=== PATIENT | female | born 1955 | race Caucasian/White ===

== ENCOUNTER → 2016-12-08 | Outpatient (CLI) | payer OTHER, MEDICARE | END | disposition home or self-care (01) | LOC: C.RDSM 15:15 | PROVIDERS: ATTEND Physical Medicine & Rehabilitation Sports Medicine | DX: M25.561 Pain in right knee (principal); M25.562 Pain in left knee ==

== ENCOUNTER 2017-07-15 08:12 | Inpatient (IN) | payer OTHER, MEDICARE ==
[2017-06-26 10:38] VITALS: BMI 40.0
--- NOTE | 2017-06-26 11:30 | PAT Medication Instructions ---
Service Date Jun 26, 2017. 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 Instructions For Your Scheduled Surgery - Check with surgeon for instructions: Ibuprofen (Motrin), 800 MG PO Q8H PRN for PRN - Hold the following medications 24 hours prior to surgery: Ropinirole (Requip), 0.25 MG PO HS PRN for RN Fenofibrate (Tricor), 48 MG PO for AM - Hold the following medications the morning of surgery: Furosemide (Lasix), 20-40 MG PO PRN Multivitamin (Multivitamin), 1 TAB PO QAM Potassium Chloride Pwd (Klor-Con Pwd), 20-40 MEQ PO PRN - Take the following medications the morning of surgery with a sip of water: Omeprazole (Prilosec), 40 MG PO QAM PRN for AM Hydrocodone/Acetaminophen 7.5MG/325MG (Crestwood 7.5MG/325MG), 1 TAB PO TID PRN for N (okay to take up to 4 hours prior to surgery if needed) Aspirin (Aspir-81), 1 TAB PO QAM (okay to continue per surgeon) - Take the following medications as scheduled the night before surgery: Potassium Chloride Pwd (Klor-Con Pwd), 20-40 MEQ PO PRN (if needed) Hydrocodone/Acetaminophen 7.5MG/325MG (Crestwood 7.5MG/325MG), 1 TAB PO TID PRN for N (if needed) Furosemide (Lasix), 20-40 MG PO PRN (if needed) If you have any questions please call us at [phone] or [phone] or [phone]
[2017-06-26 12:13] LABS: BASO % 0.2 %; BASO ABS # 0.01 K/uL (0-0.2); COMPLETE YES; EOS % 1.8 %; IG% 0.2 %; LYMPH % 34.9 %; LYMPH ABS # 1.89 K/uL (1.2-3.4); MEAN CORPUSCULAR HEMOGLOBIN 31.7 pg (25-34); MEAN CORPUSCULAR HGB CONC 33.3 g/dl (32-36); MEAN PLATELET VOLUME 11.3 fL (7.4-10.4); NEUT % 57.9 %; PLATELET COUNT 215 K/uL (130-400); RED BLOOD COUNT 4.42 M/uL (4.2-5.4); WHITE BLOOD COUNT 5.42 K/uL (4.8-10.8)
[2017-06-26 12:13] LABS: URINE APPEARANCE CLEAR (CLEAR); URINE BILIRUBIN NEG (NEG); URINE COLOR YELLOW; URINE NITRITE NEG (NEG); URINE PH 6.5 (4.5-7.5); UROBILINOGEN NEG (NEG)
--- NOTE | 2017-06-26 12:13 | DIAGNOSTIC IMAGING REPORT ---
CHEST PREADMISSION(PA/LAT) CLINICAL HISTORY: Preoperative evaluation. COMPARISON STUDY: No previous studies for comparison. FINDINGS: Incidental note is made of upper abdominal surgical clips and an anterior cervical spine fusion. Lung volumes are normal. No pneumothorax or pleural effusion is present. There is no evidence of pulmonary edema. Linear left lower lung opacity suggests atelectasis. Cardiomediastinal silhouette is normal. IMPRESSION: No acute cardiopulmonary findings. Electronically signed by: Simon Yancey M.D. 06/26/2017 12:11 PM Dictated Date/Time: 06/26/2017 12:10 PM
[2017-06-26 12:23] LABS: MANUAL MICROSCOPIC REQUIRED? NO; REVIEW REQ? NO
[2017-06-26 12:23] LABS: PARTIAL THROMBOPLASTIN RATIO 1.1; PROTHROMBIN TIME (PATIENT) 10.4 SECONDS (9.0-12.0)
[2017-06-26 12:35] LABS: BUN/CREATININE RATIO 15.3 (10-20); CALCIUM 9.3 mg/dl (8.5-10.1); CREATININE 0.99 mg/dl (0.60-1.20); POTASSIUM 4.6 mmol/L (3.5-5.1)
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
[2017-07-15] VITALS (7 sets, daily range): BP systolic 127–173; BP diastolic 77–92; PULSE 73–96; TEMP 36.5–36.9; O2SAT 96–100; Ht 170.2 cm; Wt 115.7 kg
[~2017-07-15] VITALS: Ht 170.2 cm; Wt 115.7 kg
[~2017-07-15 08:12] MED LIST: ANCEF - ALLERGY NOTED TO ORDERED MEDICATION SCH; ASPI-232 PO; BUPIVACAINE 0.25% 30 ML VIAL ONE; BUPIVACAINE 0.5 % 5 MG/1 ML PF 10ML VIAL ONE; CEFAZOLIN 2000MG IV PUSH 10 ML IV SCH; FENO48TA9 PO; FURO-85 PO; HYDR-3983 PO; IBUP-1428 PO; LACTATED RINGER'S 1000ML 1,000 ML IV SCH; LACTATED RINGER'S 1000ML 500 ML IV ONE; LACTATED RINGER'S 1000ML IV SCH; MULT-506 PO; POTA1POW PO; PRLSR20 PO; ROPI0.25 PO; ROPIVACAINE 5MG/ML 30 ML 150 MG, BUPIVACAINE/EPINEPHR 0.5% MPF 30 ML, KETOROLAC TROMETH... INFIL SCH; TRANEXAMIC ACID INJ 1,000 MG in SYRINGE 0 ML IV SCH
--- NOTE | 2017-07-15 08:15 | History & Physical Bridge Note ---
H&P Re-Evaluation Bridge Note: I have examined the patient, reviewed the History & Physical and in the interval since the performance of the History & Physical I have noted the following changes of clinical significance:consent reviewed. No changes noted
[2017-07-15] MEDS ORDERED: FENTANYL CITRATE INJ 50 MCG/1 ML 2 ML VIAL ONE (09:00)
[2017-07-15] MEDS ORDERED: MIDAZOLAM HCL 1 MG/ML 2ML VIAL ONE (09:00)
[2017-07-15] MEDS ORDERED: LIDOCAINE HCL 2% 2 ML VIAL (20MG/ML) ONE (09:05)
[2017-07-15] MEDS ORDERED: PHENYLEPHRINE 100MCG/ML 5ML SYR ONE (09:05)
[2017-07-15] MEDS ORDERED: PROPOFOL IV EMULSION 10 MG/ML 20 ML VIAL IV ONE ×2 (09:05→11:14)
[2017-07-15] MEDS ORDERED: EpHEDrine SULFATE 50MG/5ML SYR ONE (09:05)
[2017-07-15] MEDS ORDERED: EpHEDrine SULFATE INJ 50 MG/ML AMP IV PRN (10:00)
[2017-07-15] MEDS ORDERED: ATROPINE SULFATE 0.1 MG/ML 5ML SYR IV PRN (10:00)
[2017-07-15] MEDS ORDERED: ONDANSETRON INJ 2 MG/ML 2 ML VIAL IV PRN ×2 (10:00→12:15)
[2017-07-15] MEDS ORDERED: POVIDONE-IODINE OP SOLN 30 ML BTL ONE (10:16)
[2017-07-15] MEDS ORDERED: ORTHO JOINT ANESTHETIC ONE (10:16)
--- NOTE | 2017-07-15 12:14 | [facility] Post Operative Brief Note ---
Immediate Operative Summary Operative Date Jul 15, 2017. Pre-Operative Diagnosis Right Knee Degenerative Joint Disease Post-Operative Diagnosis Same as preop Procedure(s) Performed Right Total Knee Arthroplasty Surgeon Dr. Boateng Clutch Mechanic Surgeon(s) Samuel Danielson PA-C Estimated Blood Loss 25 ml Findings severe djd Fluids (cc crystalloids) 1300cc Specimens A. Right Knee Bone and Tissue Drains none Anesthesia spinal Complication(s) None Disposition Recovery Room / PACU
[2017-07-15] MEDS ORDERED: METOCLOPRAMIDE HCL INJ 5 MG/ML 2 ML VIAL IV PRN (12:15)
[2017-07-15] MEDS ORDERED: DiphenhydrAMINE HCL 50 MG/ML VIAL IV PRN (12:15)
[2017-07-15] MEDS ORDERED: OXYCODONE HCL IR 5 MG TAB (IMMEDIATE RELEASE) PO PRN (12:15)
[2017-07-15] MEDS ORDERED: ACETAMINOPHEN 325 MG TAB PO PRN (12:15)
[2017-07-15] MEDS ORDERED: BISACODYL 10 MG SUPP PR PRN (12:15)
[2017-07-15] MEDS ORDERED: ROPINIROLE HCL 0.25 MG TAB PO PRN (12:15)
[2017-07-15] MEDS ORDERED: ALUMINUM/MAGNESIUM/SIMETH (MAALOX MAX) 30 ML UDC PO PRN (12:15)
[2017-07-15] MEDS ORDERED: MAGNESIUM HYDROXIDE SUSP 30 ML UDC PO PRN (12:15)
--- NOTE | 2017-07-15 12:30 | [facility] Operative Report ---
Operative Report Operative Date Jul 15, 2017. Pre-Operative Diagnosis Right Knee Degenerative Joint Disease Post-Operative Diagnosis Same as preop Procedure(s) Performed Right Total Knee Arthroplasty Surgeon Dr. Boateng Front Man Surgeon(s) Samuel Danielson PA-C Estimated Blood Loss 25 ml Findings Right knee end-stage DJD Fluids 1300cc Specimens A. Right Knee Bone and Tissue Drains none Anesthesia spinal Complication(s) None Disposition Recovery Room / PACU Indications This 61-year-old white female presented to the office with complaints of intractable right knee pain. Pain was worse with weight-bearing. She had tried conservative care measures including activity modification, steroid injections, and oral pain medication without lasting relief. She elected to proceed with surgical intervention after being educated about potential risks and outcomes. Preoperative imaging was obtained. Description of Procedure Patient was administered a spinal anesthetic and then taken to the operating room where she was given sedation. She was prepped and draped in usual sterile fashion. Please see Dr. Boateng's operative report for specifics of the procedure. I was present for the entire case from initial patient positioning through final wound closure. Assistance was provided in tissue traction, hemostasis, trial implant placement, final implant placement, and final wound closure. Patient was taken to the recovery room in satisfactory condition. I attest to the content of the Intraoperative Record and any orders documented therein. Any exceptions are noted below.
--- NOTE | 2017-07-15 12:34 | OPERATIVE REPORT ---
DATE OF OPERATION: 07/15/2017 PREOPERATIVE DIAGNOSIS: Osteoarthritis, right knee. POSTOPERATIVE DIAGNOSIS: Same. OPERATION PERFORMED: Right cemented total knee replacement. SURGEON: Dr. Boateng. MANAGER PAID: Samuel Danielson PA-C. PERIOPERATIVE SITUATION: Medically cleared female with intractable knee pain has physical exam, x-ray is consistent with severe disease, has marked medial joint space narrowing and patellofemoral disease. SUMMARY OF IMPLANTS: Size 3 rotating platform tibia, oval domed 3 pegged patella size 38, tibial insert size 4/12.5, size 4 femur, posterior cruciate substituting size 4 narrow. ESTIMATED BLOOD LOSS: 25 mL. CRYSTALLOID: 1300 mL. DVT prophylaxis with Coumadin. PERIOPERATIVE SITUATION: Medically cleared female with intractable knee pain. Physical exam and x-rays have severe disease. Wants to proceed with surgical treatment. Had the other side done years ago. OPERATION AND FINDINGS: OPERATION: The patient appropriately identified, site verified, consent verified, 2 grams of Ancef and a gram of TXA confirmed as being given. The right lower extremity was prepped and draped in usual routine fashion. Tourniquet inflated to 300 mmHg after exsanguination of limb with a rubber Esmarch bandage for a total of 44 minutes. Midline exposure was utilized. Parapatellar arthrotomy performed. Synovectomy completed. Distal femur then resected 12 mm. Proximal tibia resected 4 mm. The extension gap was excellent. The femur was sized between a 5 and 4, it was measured 5 cut 4. The flexion gap was good. Four narrow implant was then applied. Box cut made. The 4 narrow fit well. There was no overhang. The tibia was sized to a 3, appropriate placed, broaching and reaming carried out. The size 3 trial fit well with 12.5 mm posterior cruciate stabilized spacer. The knee was stable in full extension and full flexion and mid range flexion. Patella was sized to a 38. Resection made leaving 15 mm. Seating hole was made and the trial tracked well and fit well. The wound was then irrigated with Betadine, Pulsavac, injected with Orthomix and then the permanent implants cemented into position. After 12 minutes the tourniquet deflated. After additional 2 minutes the knee flexed. Minor cement removal occurred and the wound irrigated with Pulsavac and Betadine. Permanent liner was then seated. The knee was reduced and closed using #1 Ethibond, #1 Vicryl, 2-0 Vicryl and stainless steel clips. The patient then had a Abdullahi Fierro cotton dressing with Sander bandages applied. She will have a Prevena placed tomorrow based on her size. She is at high risk relatively speaking with respect to her BMI and potential wound complications. She understood this going into the procedure. She was appropriately managed during the procedure. We will keep her knee relatively stiff for next 2 weeks to let the wound heal, use the Prevena, follow up in a week for dressing change. Keep INR in the 2 range. SUMMARY OF IMPLANTS: Again, size 4 narrow femur, posterior cruciate substituting size 3 rotating tibial platform tray, oval domed 3 peg patella size 38, tibial insert rotating platform, posterior cruciate stabilized size 4, 12.5 mm thick, 2 bags of Palacos G cement. I attest to the content of the Intraoperative Record and any orders documented therein. Any exception s are noted below.
--- NOTE | 2017-07-15 12:59 | DIAGNOSTIC IMAGING REPORT ---
TWO VIEWS RIGHT KNEE CLINICAL HISTORY: Postoperative examination. FINDINGS: AP and crosstable lateral portable views of the right knee are obtained. A right knee arthroplasty is in near anatomic alignment. There has been undersurface remodeling of the patella. No acute fracture is seen. There are expected postoperative changes around the knee including skin clips, soft tissue edema, and subcutaneous gas. IMPRESSION: Expected postoperative changes status post right knee arthroplasty. No acute fracture is seen. Electronically signed by: Thom Mo M.D. 07/15/2017 12:58 PM Dictated Date/Time: 07/15/2017 12:57 PM
--- NOTE | 2017-07-15 13:03 | PROGRESS NOTE ---
DATE: 07/15/2017 SUBJECTIVE: Postop check seen in recovery room. The patient is doing well. Denies chest pain, shortness of breath, fever, chills, nausea, vomiting, or headache. Vital signs are stable. She is afebrile. Still has effects of spinal; CMS is limited by that. Wound dressing clean, dry and intact. X-rays post op look good. ASSESSMENT: Doing well. Continue with care pathway. Mobilize to tolerance if x-rays look good. FELIZ
--- NOTE | 2017-07-15 14:02 | Anesthesiology Progress Note ---
Anesthesia Post Op Note Date & Time Jul 15, 2017 at 14:01 Vital Signs Pain Intensity: 0 Vital Signs Past 12 Hours Date Time Temp Pulse Resp B/P (MAP) Pulse Ox O2 Delivery O2 Flow Rate FiO2 07/15/17 13:56 36.2 80 18 122/80 98 Nasal Cannula 2 07/15/17 12:13 36 89 16 125/79 98 Nasal Cannula 2 07/15/17 08:45 36.6 96 18 173/92 96 Room Air Notes Mental Status: alert / awake / arousable, participated in evaluation Pt Amnestic to Procedure: Yes Nausea / Vomiting: adequately controlled Pain: adequately controlled Airway Patency, RR, SpO2: stable & adequate BP & HR: stable & adequate Hydration State: stable & adequate Neuraxial Anesthesia: was administered, sensory block is resolving Anesthetic Complications: no major complications apparent
[2017-07-15] MEDS ORDERED: HYDR-3983 PO (14:13)
[2017-07-15] MEDS ORDERED: WARF2TAB PO (14:13)
[2017-07-15] MEDS ORDERED: MoRPHine SULFATE 4 MG/ML 1 ML CARP\\VIAL IV PRN (14:15)
[2017-07-15] MEDS ORDERED: D5W AND 1/2NSS + 20MEQ KCL 1,000 ML IV SCH (15:15)
[2017-07-15] MEDS ORDERED: WARFARIN SOD 5 MG TAB PO SCH (16:00)
[2017-07-15] MEDS ORDERED: TRANEXAMIC ACID INJ 1,000 MG in SODIUM CHLORIDE 0.9% 100ML 100 ML IV SCH (18:00)
[2017-07-15] MEDS: CEFAZOLIN IV 2,000 MG in SYRINGE 0 ML IV SCH (18:38)
[2017-07-15] MEDS ORDERED: NURSING VERBAL MED ORDER ONE (19:45)
[2017-07-15] MEDS ORDERED: HYDROCODONE/ACETAMOPHEN 5/325MG TAB PO PRN (20:00)
[2017-07-15] MEDS: DOCUSATE SODIUM 100 MG CAP PO SCH (20:35)
[2017-07-15] MEDS: MoRPHine SULFATE 2 MG/ML CARP IV PRN (23:15)
[2017-07-16] MEDS: ACETAMINOPHEN IV 100 ML IV PRN ×2 (00:05→13:20)
[2017-07-16] MEDS: CEFAZOLIN IV 2,000 MG in SYRINGE 0 ML IV SCH (02:25)
[2017-07-16] MEDS: MoRPHine SULFATE 2 MG/ML CARP IV PRN ×2 (03:12→05:46)
[2017-07-16 03:21] VITALS: BP 121/76; PULSE 85; TEMP 36.8; O2SAT 96
[2017-07-16] MEDS ORDERED: HYDROmorphone HCL 2 MG TAB PO STA (06:09)
[2017-07-16 06:30] LABS: MEAN CELL VOLUME 96.8 fL (80-100); MEAN CORPUSCULAR HEMOGLOBIN 32.3 pg (25-34); MEAN CORPUSCULAR HGB CONC 33.3 g/dl (32-36); MEAN PLATELET VOLUME 10.7 fL (7.4-10.4); PLATELET COUNT 170 K/uL (130-400); RED BLOOD COUNT 3.41 M/uL (4.2-5.4); WHITE BLOOD COUNT 6.93 K/uL (4.8-10.8)
--- NOTE | 2017-07-16 06:32 | PROGRESS NOTE ---
DATE: 07/16/2017 SUBJECTIVE: Postop day #1. She is on chronic pain meds at home and feels like the pain medications are not really helping. Otherwise, she is doing fine. She is up ambulatory. She denies chest pain, shortness of breath, fever, chills, nausea, vomiting or headache. OBJECTIVE: Vital signs are stable. She is afebrile. Abdomen soft, nontender. Calf soft, nontender. Wound dressing clean, dry and intact. Neurovascular check femoral sciatic nerve is good. ASSESSMENT: Overall, doing reasonable, but needs better pain management. We will switch to oral Dilaudid 2 mg p.o. q. 3 hours p.r.n. Coumadin per nomogram. Laboratory work pending. PT, OT, social service consult. Discharge pending her pain management. Hopefully this will get under control today. Later today potential discharge versus tomorrow. Discharge on Coumadin usual dose, 4 mg if INR is less than 1.5, 2 mg if greater than 1.5.
[2017-07-16 06:43] LABS: INR 1.1 (0.9-1.1)
[2017-07-16 07:08] LABS: BUN/CREATININE RATIO 12.3 (10-20); CALCIUM 8.6 mg/dl (8.5-10.1); CREATININE 1.01 mg/dl (0.60-1.20); POTASSIUM 4.2 mmol/L (3.5-5.1)
--- NOTE | 2017-07-16 07:20 | Clinical Documentation Query ---
CLINICAL DOCUMENTATION QUERY A 61 yo female admitted with s/p right total knee arthroplasty. In your clinical opinion is this patient being managed for: ( x ) Renal agenesis, congenital ( ) Acquired kidney loss, surgical removal ( ) Not Agree ( ) Other explanation of clinical findings (Please Explain) ( ) Unable to determine (Please Define) ( ) Need to Discuss The medical record reflects the following clinical findings, treatment, and risk factors. Clinical Indicators: Documented "solitary kidney" in H&P Treatment: Prescription management, PRP Risk Factors: S/p surgical intervention, HTN, renal cancer Please clarify and document your clinical opinion in the progress notes and discharge summary. Terms such as "probable", "suspected", "likely", "questionable", "possible", or "still to be ruled out" are acceptable. IF IN AGREEMENT, YOU MUST DOCUMENT ABOVE DIAGNOSTIC STATEMENT IN DAILY PROGRESS NOTES AND DISCHARGE SUMMARY. This document is not part of the patient's record. Thank You, Ericka Hammond RN [phone]
[2017-07-16] MEDS ORDERED: DEXAMETHASONE INJ 10 MG in SYRINGE 0 ML IV ONE (07:30)
[2017-07-16 07:41] VITALS: BP 100/56; PULSE 83; TEMP 37.1; O2SAT 94
--- NOTE | 2017-07-16 07:52 | PROGRESS NOTE ---
DATE: 07/16/2017 DATE: 07/16/2017 At this point in time the patient cannot use Toradol based on renal risk from congenital kidney absence. I switched her to Thai to help with that. She notes that adjustment in medication has worked well.
--- NOTE | 2017-07-16 08:26 | Orthopedic Progress Note ---
Orthopedic Progress Note Date of Service Jul 16, 2017. Subjective Post OP Day: 1 Reports: complaints, Denies: chest pain, SOB, nausea / vomiting, light headedness, calf pain Additional Notes: Patient states she had significant pain last night and required morphine. Pain is better now. Objective calves soft nontender, N/V intact, capillary refill less than 2 sec., dressing C /D/I, incision C/D/I, A&O x3, toes mobile, CMS intact minor bleeding on dressings, no active bleeding now Date Time Temp Pulse Resp B/P (MAP) Pulse Ox O2 Delivery O2 Flow Rate FiO2 07/16/17 07:41 37.1 83 16 100/56 (71) 94 Room Air 07/16/17 03:21 36.8 85 18 121/76 (91) 96 Room Air 07/15/17 23:55 Room Air 07/15/17 23:25 36.9 91 20 127/86 (100) 97 Room Air 07/15/17 17:20 36.5 82 18 137/87 (104) 100 Nasal Cannula 2.0 07/15/17 16:20 36.6 80 18 143/92 (109) 98 Nasal Cannula 2.0 07/15/17 15:40 Nasal Cannula 2.0 07/15/17 15:20 36.6 73 16 138/81 (100) 99 Nasal Cannula 2.0 07/15/17 14:51 Nasal Cannula 2.0 07/15/17 14:46 100 Nasal Cannula 2.0 07/15/17 14:25 36.9 82 18 133/77 (95) 100 Nasal Cannula 2.0 07/15/17 14:03 79 14 96 07/15/17 14:03 79 14 07/15/17 14:02 127/85 07/15/17 13:58 80 14 97 07/15/17 13:58 78 14 07/15/17 13:57 122/80 07/15/17 13:56 36.2 80 18 122/80 98 Nasal Cannula 2 07/15/17 13:53 74 14 07/15/17 13:53 80 14 96 07/15/17 13:52 129/98 07/15/17 13:48 83 16 98 07/15/17 13:48 83 16 07/15/17 13:47 127/98 07/15/17 13:43 82 22 07/15/17 13:43 84 22 98 07/15/17 13:42 146/84 07/15/17 13:38 71 13 07/15/17 13:38 72 13 98 07/15/17 13:37 136/81 07/15/17 13:33 72 17 07/15/17 13:33 71 17 98 07/15/17 13:32 139/82 07/15/17 13:28 77 13 99 07/15/17 13:28 70 13 07/15/17 13:27 129/65 07/15/17 13:23 75 12 97 07/15/17 13:23 74 12 07/15/17 13:22 145/82 07/15/17 13:18 75 15 100 07/15/17 13:18 73 15 07/15/17 13:17 135/75 07/15/17 13:13 80 14 98 07/15/17 13:13 80 14 07/15/17 13:12 132/75 07/15/17 13:08 77 14 100 07/15/17 13:08 77 14 07/15/17 13:07 132/84 07/15/17 13:03 78 13 98 07/15/17 13:03 77 13 07/15/17 13:02 140/81 07/15/17 12:58 82 14 07/15/17 12:58 83 14 100 07/15/17 12:57 128/72 07/15/17 12:53 86 25 07/15/17 12:53 85 25 138/73 100 07/15/17 12:48 81 16 100 07/15/17 12:48 82 16 07/15/17 12:47 133/84 07/15/17 12:43 88 16 99 07/15/17 12:43 86 16 07/15/17 12:42 141/75 07/15/17 12:38 82 12 07/15/17 12:38 79 12 98 07/15/17 12:37 125/83 07/15/17 12:33 93 13 98 07/15/17 12:33 86 13 07/15/17 12:32 125/78 07/15/17 12:28 90 14 131/80 97 07/15/17 12:28 87 14 11/1/17 12:23 90 15 97 07/15/17 12:23 87 15 07/15/17 12:22 111/79 07/15/17 12:18 89 16 07/15/17 12:18 90 16 100 07/15/17 12:17 120/65 07/15/17 12:14 125/79 07/15/17 12:13 95 16 97 07/15/17 12:13 82 16 07/15/17 12:13 36 89 16 125/79 98 Nasal Cannula 2 07/15/17 08:45 36.6 96 18 173/92 96 Room Air Laboratory Results 24 Hours: Test 07/16/17 06:16 Hematocrit 33.0 % Hemoglobin 11.0 g/dL Prothromb Time International Ratio 1.1 Prothrombin Time 12.0 SECONDS Assessment & Plan Assessment: post op day 1 Right total knee arthroplasty Plan: PT/OT today coumadin per nomogram dressing changed to Prevena wound vac this morning will re-assess this afternoon -patient will let us know about D/C today vs tomorrow continue TEDS/SCDs Discharge Planning Discharge Planning: home with home health Pain Management: Percocet, Dilaudid DVT Prophylaxis: TEDs, SCDs, Coumadin Therapy: Physical Therapy
[2017-07-16] MEDS: DOCUSATE SODIUM 100 MG CAP PO SCH (08:35)
[2017-07-16] MEDS ORDERED: FENOFIBRATE 48 MG TAB PO SCH (09:00)
[2017-07-16] MEDS ORDERED: MULTIVITAMIN TAB PO SCH (09:00)
[2017-07-16] MEDS ORDERED: ASPIRIN 81 MG ECTAB PO SCH (09:00)
[2017-07-16] MEDS: HYDROmorphone HCL 2 MG TAB PO PRN ×2 (09:22→14:00)
[2017-07-16 11:18] VITALS: BP 146/88; PULSE 91; TEMP 37.1; O2SAT 95
[2017-07-16] MEDS ORDERED: HYDR2TAB48 PO (12:01)
--- NOTE | 2017-07-16 12:01 | Discharge Instructions ---
Discharge Instructions Date of Service Jul 15, 2017. Admission Reason for Admission: Right Knee Degenerative Joint Disease Discharge Discharge Diagnosis / Problem: Right knee s/p total knee replacement Discharge Goals Goal(s): Decrease discomfort, Improve function, Increase independence Activity Recommendations Activity Limitations: as noted below Lifting Limitations: gradually increase as tolerated Exercise/Sports Limitations: until after follow-up appointment Shower/Bathe: keep incision dry Driving or Machine Use: No driving until cleared by Dr. Boateng Weightbearing Status: Right weightbearing (as tolerated) . Instructions / Follow-Up Instructions / Follow-Up New Medicine: * You will likely be taking one or more of these medications: 1. [place] - Take, as directed, when you need it, every four to six hours to control your pain. 2. Coumadin - Thins your blood to lessen the chance of forming a blood clot. The dose of this is different for each person and is based on your blood tests that are done twice a week. * The most common side effects of pain medicine and iron are nausea and constipation. If nausea or constipation is too much of a problem or if you have any questions about your new medicines or doses, call [facility] at . We will try to help you manage these issues. VERY IMPORTANT TO READ AND REVIEW" Blood Clots and Blood Thinning Medicine: * You are given Coumadin during the immediate post-operative period to lessen the risk of blood clots forming in your legs and/or lungs. Coumadin is usually given for six weeks after surgery. * The prescription is for 2 mg tablets. At discharge, you should understand your dose and take it all at the same time every day, preferably after dinner. * You need to get your blood checked 1 - 2 times per week for six weeks or as directed. * If your dose needs to change, we will call you. Do not take your medication on the day of the blood test until we call you. Pain: * The immediate post-operative period after knee replacement surgery is often quite painful. * You are given a prescription for pain medicine. You should take it, as directed, when you need it, especially before physical therapy and before going to bed. Pain that interferes with sleep is very common and can last several months. * You will likely need pain medicine for the first four to six weeks. It will not stop all of the pain. The pain will lessen and as you feel better, you may change to milder pain medicine such as Tylenol. * The most common side effects of pain medicine are nausea and constipation, so don't take more than you need. Physical Therapy: * You will have physical therapy two or three times each week for four to six weeks after your surgery in order to regain your knee range of motion and to retrain your knee to work properly. * It is just as important to make sure you are getting your knee perfectly straight as it is to regain your knee bend. * Taking a pain pill an hour before therapy can help you have a more productive and comfortable therapy session if needed. Home Exercise: * You were shown a series of exercises (heel props, heel slides, etc.) in the hospital. Do these exercises three to four times each day including the exercises you were shown in physical therapy. Walking: * Get up and walk several times each day. For the first four weeks, try not to stand or walk for more than one hour at a time. If you do stand or walk for more than one hour, you will not hurt anything, but your knee and leg will likely swell. * As you feel comfortable, you may change from the walker or crutches to a cane and then to independent walking. SELF CARE INSTRUCTIONS AFTER TOTAL KNEE REPLACEMENT A. You may need to continue a physical therapy program after discharge from the hospital. There are several options available to you. Your doctor will assist you in selecting the best one for you. 1. An out-patient facility 2 to 3 times a week for therapy or home therapy. 2. Continue working on all exercises taught to you in the hospital. Your goals should be to increase bending of your knee to 90 degrees and beyond and to fully straighten your knee. B. You may progress at your own pace from walking with a walker or crutches to a cane; then to no assistive devices. C. Make walking a part of your daily routine. Be up as much as comfortable with rest periods throughout the day. Rest with leg elevation is very important. Use the ice wrap frequently for the first 3-4 weeks. D. There are no restrictions on activities. You may ride in a car, shop, participate in registered nurse ambulatory and all social activities. E. Wear the long elastic stockings (JIMI hose) 20 hours a day for six weeks after surgery. They can be removed several times a day for laundering and for a shower. F. Do not place a pillow behind your knee when resting. A pillow at your ankle is okay. VERY IMPORTANT TO READ AND REVIEW A. Take Coumadin, Aspirin or Lovenox (blood thinning medications) as directed by your doctor. If on Coumadin, have a pro-time (blood test) drawn according to your doctor's instructions. This will tell the doctor how well the Coumadin is thinning your blood. 1. YOU WILL BE GIVEN AN ORDER AT DISCHARGE FOR PT/INR (BLOOD WORK). PLEASE HAVE THIS DONE INSTRUCTED. PLEASE CALL OUR OFFICE AFTER YOUR BLOODWORK IS COMPLETE SO WE CAN TRACK YOUR RESULTS. IF YOU ARE GOING TO OUTPATIENT PHYSICAL THERAPY, YOU WILL NEED TO GO TO OUTPATIENT TESTING TO HAVE IT DRAWN. B. There are a few signs you need to watch for after you are home. Call [facility] if you notice any of the followin. Increased severe knee pain. Some pain is expected especially when you exercise. 2. Increased swelling in your leg or knee; pain or swelling of the calf muscle in either lower leg. 3. Any fluid drainage from the incision. 4. Shortness of breath or chest pain. C. Please call [facility] at if you have any concerns or questions about your operation or recovery. The doctor or his nurse will return your call promptly. D. You must take antibiotics before dental work, bladder, bowel or other surgery. Call the office to obtain a prescription at least 2 days prior to your appointment. * CALL IF INCREASED PAIN, REDNESS, DRAINAGE OR FEVER GREATER THAT 101. * Sutures should be removed 12-14 days after surgery unless you are on chronic steriods, then it will be 14-18 days after surgery. Call your doctor if: * Temperature above 101 degrees F. * Pain not relieved by pain medicine ordered. * Increased drainage or redness from incision. * Notify your doctor with any questions or concerns. Current Hospital Diet Patient's current hospital diet: AHA Diet (Heart Healthy) Discharge Diet Recommended Diet: AHA Diet (Heart Healthy) Procedures Procedures Performed: Right Total Knee Arthroplasty Pending Studies Studies pending at discharge: no Medical Emergencies . Who to Call and When: Medical Emergencies: If at any time you feel your situation is an emergency, please call 911 immediately. . Non-Emergent Contact Non-Emergency issues call your: Primary Care Provider, Surgeon Call Non-Emergent contact if: temperature is above 101, wound has increased drainage, wound has increased redness, wound has increased pain, you have any medication questions . "Provider Documentation" section prepared by Samuel Danielson PA-C. . VTE Core Measure Inpt VTE Proph given/why not?: Warfarin (Coumadin), TAshly Stockings, SCD's [place] Drug Monitoring Program Search Results: no issues identified
--- NOTE | 2017-07-16 12:17 | DISCHARGE SUMMARY ---
DATE OF ADMISSION: 07/15/2017 DATE OF DISCHARGE: 07/16/2017 CHIEF COMPLAINT: Right knee pain. HISTORY OF PRESENT ILLNESS: The patient underwent elective right total knee replacement. Hospital course has been uneventful. Her pain was a little bit of an issue but now tolerates well with oral Dilaudid 2 mg every 4 hours. PAST MEDICAL HISTORY: Remarkable for hypertension, elevated cholesterol, heart palpitations, snoring, peripheral neuropathy, osteoarthritis, TMJ, cervical spine, chronic low back pain, history of left renal cancer, GERD, obesity, and poor dentition. PAST SURGICAL HISTORY: Includes left total knee replacement, left nephrectomy, mandibular implant, cholecystectomy, appendectomy, hysterectomy, tonsillectomy, adenoidectomy, history of lumbar fusion, and history of cervical spine fusion. ALLERGIES: MULTIPLE INCLUDING BIAXIN, KENALOG, CORTICOSTEROID, NEXIUM, PROTONIX, SULFA, PENICILLIN. She takes Keflex without issues, but PENICILLIN CAUSES HIVES. THE REST CAUSE HIVES OR HYPERTENSION. PREADMISSION MEDICATIONS: [place] 7.5/325 t.i.d.; aspirin 81 mg daily; fenofibrate 48 mg daily; Lasix 20 mg p.o. p.r.n., typically 3 times a week; ibuprofen 800 mg t.i.d.; omeprazole 40 mg daily; potassium 20 mEq p.r.n.; ropinirole 0.25 mg p.o. daily; she will discontinue the ibuprofen, she will use p.r.n. Dilaudid 2 mg q. 4 hours p.r.n. or her [place]. She will use Coumadin to keep INR 1.8 to 2.2, will be discharged on 4 mg daily. Check INR on Thursday. Of note, she has a wound VAC on. SOCIAL HISTORY: Reveals that she is on disability. Infrequent tobacco and alcohol use. She is . FAMILY HISTORY: Noncontributory. REVIEW OF SYSTEMS: Reveals no chest pain, shortness of breath, fever, chills, nausea, vomiting, or headache. ASSESSMENT: Overall doing well. Discharged today. She decided that Dilaudid controlled her pain and wants to leave, prescription for 2 mg tablets will be given for 25 pills. She can transition to her [place] as needed. She has a wound VAC in place that will be taken off early next week, Thursday or Thursday in the office. She has a followup appointment after that for roughly 2 weeks from surgery for staple removal. Discharged on 4 mg of Coumadin. Check INR on Thursday.
[2017-07-16 13:04] VITALS: BP 146/88; PULSE 91; TEMP 37.1; O2SAT 95
[2017-07-16] MEDS ORDERED: WARFARIN SOD 5 MG TAB PO ONE (16:00)
== END 2017-07-16 15:32 | disposition home health service (06) | DRG 470 ==
LOC: C.ACU 08:12 → C.MSW 08:20 → ENRESERV 13:50
PROVIDERS: ADMIT Physical Medicine & Rehabilitation Sports Medicine; ATTEND Physical Medicine & Rehabilitation Sports Medicine
PROC: 0SRC0J9 Replacement of Right Knee Joint with Synthetic Substitute, Cemented, Open Approach (ICD-10-PCS; principal; 2017-07-15 10:40)
DX: M17.11 Unilateral primary osteoarthritis, right knee (principal); Q60.0 Renal agenesis, unilateral; I10 Essential (primary) hypertension; E78.00 Pure hypercholesterolemia, unspecified; E66.9 Obesity, unspecified; Z79.899 Other long term (current) drug therapy; Z79.82 Long term (current) use of aspirin

== ENCOUNTER → 2017-08-31 | Outpatient (CLI) | payer OTHER, MEDICARE ==
[~2017-08-31] MED LIST changes: -ANCEF - ALLERGY NOTED TO ORDERED MEDICATION SCH; -BUPIVACAINE 0.25% 30 ML VIAL ONE; -BUPIVACAINE 0.5 % 5 MG/1 ML PF 10ML VIAL ONE; -CEFAZOLIN 2000MG IV PUSH 10 ML IV SCH; -IBUP-1428 PO; -LACTATED RINGER'S 1000ML 1,000 ML IV SCH; -LACTATED RINGER'S 1000ML 500 ML IV ONE; -LACTATED RINGER'S 1000ML IV SCH; -ROPIVACAINE 5MG/ML 30 ML 150 MG, BUPIVACAINE/EPINEPHR 0.5% MPF 30 ML, KETOROLAC TROMETH... INFIL SCH; -TRANEXAMIC ACID INJ 1,000 MG in SYRINGE 0 ML IV SCH; +WARF2TAB PO
== END | disposition home or self-care (01) ==
LOC: C.RDSM 11:58
PROVIDERS: ATTEND Physical Medicine & Rehabilitation Sports Medicine
DX: M17.11 Unilateral primary osteoarthritis, right knee (principal)

== ENCOUNTER 2024-04-05 07:02 | Inpatient (IN) ==
--- NOTE | 2024-03-08 10:23 | PAT Medication Instructions ---
Medication Instructions Date of Service March 08, 2024 Home Medications aspirin 81 mg capsule 81 mg PO QAM atorvastatin 20 mg tablet 20 mg PO QAM furosemide 20 mg tablet 2,040 mg PO QAM PRN swelling hydrocodone 7.5 mg-acetaminophen 325 mg tablet 1 tab PO TID PRN Pain levothyroxine 50 mcg tablet 50 mcg PO QAM losartan 100 mg tablet (Cozaar) 100 mg PO HS metaxalone 800 mg tablet 800 mg PO TID PRN muscle spasms multivitamin 1 tab PO QAM ] omeprazole 40 mg capsule,delayed release 40 mg PO QAM PRN GERD potassium chloride 20 mEq tablet,extended release 20 - 40 meq PO DAILY PRN taken when taking furosemide ropinirole 0.25 mg tablet 0.25 mg PO HS DO NOT take the morning of surgery furosemide 20 mg tablet 2,040 mg PO QAM PRN swelling multivitamin 1 tab PO QAM potassium chloride 20 mEq tablet,extended release 20 - 40 meq PO DAILY PRN taken when taking furosemide Take morning of surgery With a small sip of water, OTHERWISE NOTHING TO EAT OR DRINK AFTER MIDNIGHT: aspirin 81 mg capsule 81 mg PO QAM (unless surgeon directed otherwise) atorvastatin 20 mg tablet 20 mg PO QAM hydrocodone 7.5 mg-acetaminophen 325 mg tablet 1 tab PO TID PRN Pain (if needed) levothyroxine 50 mcg tablet 50 mcg PO QAM metaxalone 800 mg tablet 800 mg PO TID PRN muscle spasms (if needed) omeprazole 40 mg capsule,delayed release 40 mg PO QAM PRN GERD (if needed) Take evening before surgery hydrocodone 7.5 mg-acetaminophen 325 mg tablet 1 tab PO TID PRN Pain (if needed) losartan 100 mg tablet (Cozaar) 100 mg PO HS ropinirole 0.25 mg tablet 0.25 mg PO HS metaxalone 800 mg tablet 800 mg PO TID PRN muscle spasms (if needed) Other Notes If you have any questions please call us at [phone] or [phone] or [phone] or [phone]
--- NOTE | 2024-03-11 11:46 | Anesthesiology Consultation ---
Date of Service March 11, 2024 Assessment & Plan (1) Encounter for pre-operative examination: - Infectious disease screening: Per assessment on 03/11/24: No known recent infectious disease contacts or current infectious disease symptoms. - Patient acceptable risk for surgery pending surgeon-ordered PCP preop evaluation (Dr. Tony Barba, appt 03/28). Chart Review Chart Review: Patient seen in Pre Admission Testing Teaching & Discussion Pre-Anesthesia Teaching/Discussion Notes: Instructed NPO after midnight before surgery,except medications with 15 cc of water. Medication instructions provided according to the PAT guidelines. History Surgery Operation Date: 04/05/24 07:45 Proposed Procedures p L4-S1 Hardware Removal, L2-L4 Decompression, L2-S1 Fusion, Spinal Cord Monitoring - Chris Suresh, Height/Weight Height: 5 ft 6 in Weight: 117.6 kg Allergies Allergy/AdvReac Type Severity Reaction Status Date / Time esomeprazole Allergy Unknown Hives Verified 03/10/24 09:17 pantoprazole Allergy Unknown Hives Verified 03/10/24 09:17 Penicillins Allergy Unknown Hives Verified 03/10/24 09:17 propoxyphene Allergy Unknown N/V Verified 03/10/24 09:17 (Darvocet), "OK with tylenol" simvastatin Allergy Unknown Mylagias Verified 03/10/24 09:17 Sulfa (Sulfonamide Allergy Unknown Hives Verified 03/10/24 09:17 Antibiotics) atenolol AdvReac Unknown Dizziness, Verified 03/10/24 09:17 felt "loopy" clarithromycin AdvReac Unknown Yeast Verified 03/10/24 09:17 infection (mouth) cortisone AdvReac Unknown Elevated BP Verified 03/10/24 09:17 prednisone AdvReac Unknown Elevated BP Verified 03/10/24 09:17 Medications Home Medications Medication Instructions Recorded Confirmed Last Taken aspirin 81 mg capsule 81 mg PO QAM 03/03/24 03/03/24 Unknown atorvastatin 20 mg tablet 20 mg PO QAM 03/03/24 03/03/24 Unknown furosemide 20 mg tablet 2,040 mg PO QAM PRN swelling 03/03/24 03/03/24 Unknown hydrocodone 7.5 mg-acetaminophen 1 tab PO TID PRN Pain 03/03/24 03/03/24 Unknown 325 mg tablet levothyroxine 50 mcg tablet 50 mcg PO QAM 03/03/24 03/03/24 Unknown losartan 100 mg tablet (Cozaar) 100 mg PO HS 03/03/24 03/03/24 Unknown metaxalone 800 mg tablet 800 mg PO TID PRN muscle spasms 03/03/24 03/03/24 Unknown multivitamin 1 tab PO QAM 03/03/24 03/03/24 Unknown omeprazole 40 mg capsule,delayed 40 mg PO QAM PRN GERD 03/03/24 03/03/24 Unknown release potassium chloride 20 mEq 20 - 40 meq PO DAILY PRN taken 03/03/24 03/03/24 Unknown tablet,extended release when taking furosemide ropinirole 0.25 mg tablet 0.25 mg PO HS 03/03/24 03/03/24 Unknown Past Medical History Medical History (Updated 03/11/24 @ 12:07 by Gina Min) Anxiety and depression GERD (gastroesophageal reflux disease) History of asthma No current issues or inhalers History of COVID-19 2019 + 2020: symptoms resolved Hx of malignant neoplasm of kidney Dx 2001, s/p left nephrectomy 2002 Hyperlipemia Hypertension Hypothyroidism Muscle spasm Chronic RLS (restless legs syndrome) 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 r/t left jaw fracture Residual occasional locking Exercise / Class Metabolic Activity III < 4 Walking/Shop/Light housework Past Surgical History Surgical History History of cardiac cath Prior to 2009- no stents History of esophagogastroduodenoscopy (EGD) History of mandibular surgery R/t left jaw fracture (surgery to correct, implant present) History of nephrectomy, left 2001 History of total left knee replacement History of total right knee replacement Hx of appendectomy Hx of cholecystectomy Hx of colonoscopy Hx of fusion of cervical spine 2004 Hx of hysterectomy left ovary remains Hx of left knee surgery to remove cartilege as a child Hx of lumbosacral spine surgery x3 Most recent 2017, L4-S1 fusion Hx of removal of cyst right calf x2 Hx of tonsillectomy Hx of tooth extraction all upper teeth Nausea and vomiting after administration of anesthetic agent [place] teeth extracted Past Anesthesia History No Hx of Anesthesia Complications * Brother: "Stopped breathing" during surgery, was told he was given "too much medicine" > No similar issues with other surgeries/anesthesia. No similar issues for patient personally. History of PONV History of PONV Social History Smoking Status: Current some day smoker Smoking cigarettes per day: 1 pack/3-4 weeks Do You Dip or Chew Tobacco: No Hx Alcohol Use: Yes Alcohol type: wine alcohol intake frequency: a few times a month Hx Substance Use: No substance use type: does not use Review of Systems Patient denies chest pain, shortness of breath, fever, chills, cough, wheezing, palpitations. Physical Exam Vital Signs BP 140/87 P 68 TEMP 98.2 SP02 95%RA RESP 16 Physical Full cervical extension range of motion. Full TMJ range of motion. TMD 3.5 finger breaths Mallampati Score 1 Dentition: full upper plate, two lower front caps (one "loose" per patient) Lungs: clear throughout to auscultation Cardiac: regular rate and rhythm, no murmurs noted Spine: normal Carotid arteries: negative bruit Extremities: no LE edema Lab Results Anesthesia Preop Results Results Anesthesia Widget: WBC 4.90 K/ul (4.8-10.8) 03/11/24 Hgb 14.0 g/dl (12.0-16.0) 03/11/24 Hct 41.0 % (37.0-47.0) 03/11/24 Plt 186 K/uL (130-400) 03/11/24 Na 142 mmol/L (136-145) 03/11/24 K 4.9 mmol/L (3.5-5.1) 03/11/24 Cl 108 mmol/L (98-107) H 03/11/24 CO2 29 mmol/L (21-32) 03/11/24 BUN 11 mg/dl (6-23) 03/11/24 Creat 0.85 mg/dl (0.6-1.2) 03/11/24 Glucose Level 100 mg/dl (70-99(Fasting)) H 03/11/24 PT 10.8 Seconds (9.0-12.0) 03/11/24 PTT 27 Seconds (21-31) 03/11/24 INR 1.0 (0.9-1.1) 03/11/24 Urine Color Yellow 03/11/24 Urine Appearance Clear (Clear) 03/11/24 Urine pH 8.0 (4.5-7.5) H 03/11/24 Urine Specific [place] 1.011 (1.000-1.030) 03/11/24 Urine Protein Negative (Negative) 03/11/24 Urine Glucose (UA) Negative (Negative) 03/11/24 Urine Ketones Negative (Negative) 03/11/24 Urine Blood Negative (Negative) 03/11/24 Urine Nitrite Negative (Negative) 03/11/24 Urine Bilirubin Negative (Negative) 03/11/24 Urine Urobilinogen Negative (Negative) 03/11/24 Urine Leukocyte Esterase Negative (Negative) 03/11/24 Blood Type B Positive 03/11/24 Antibody Screen NEGATIVE 03/11/24 Testing Electrocardiogram Date: 03/11/24 Findings: + NSR @ (68) Chest X-Ray Date: 03/11/24 FINDINGS: ACDF is seen. The cardiomediastinal silhouette is normal. The lungs are clear. No evidence of pleural effusion or pneumothorax. IMPRESSION: No acute chest disease. Echocardiogram Date: 02/06/17 EF 55-60%. Grade I DD. Stress Test Date: 02/06/17 SPECT images WNL. No significant infarction/ischemia. LEVF 70%.
[2024-04-05] MEDS ORDERED: PROPOFOL IV EMULSION 10 MG/ML 20 ML VIAL IV ONE (07:06)
[2024-04-05] MEDS ORDERED: GLYCOPYRROLATE 0.2 MG/ML VIAL ONE (07:06)
[2024-04-05] MEDS ORDERED: LIDOCAINE 2% 2 ML VIAL/AMP(20MG/ML) INFIL ONE (07:06)
[2024-04-05] MEDS ORDERED: DEXAMETHASONE SOD INJ 4 MG/ML VIAL ONE (07:06)
[2024-04-05] MEDS ORDERED: fentaNYL citrate PF 100 MCG/2 ML VIAL ONE ×2 (07:06→12:02)
[2024-04-05] MEDS ORDERED: ROCURONIUM BROMIDE 10 MG/ML 5 ML VIAL IV ONE (07:06)
[2024-04-05] MEDS ORDERED: ONDANSETRON INJ 2 MG/ML 2 ML VIAL ONE (07:06)
[2024-04-05] MEDS ORDERED: MIDAZOLAM HCL 1 MG/ML 2ML VIAL ONE (07:07)
[2024-04-05] MEDS ORDERED: SUGAMMADEX SODIUM 200 MG/2 ML VIAL IV ONE (07:08)
[2024-04-05] MEDS: LR 15ML/HR IV SCH (07:44)
[2024-04-05] MEDS: VANCOMYCIN HCL 1,750 MG in SODIUM CHLORIDE 0.9% 500 ML IV SCH (07:44)
[2024-04-05] MEDS: LR 60ML/HR IV SCH (08:02)
[2024-04-05] MEDS: GABAPENTIN 300 MG CAP PO SCH (08:03)
[2024-04-05] MEDS ORDERED: ONDANSETRON INJ 2 MG/ML 2 ML VIAL IV PRN ×2 (09:28→15:29)
[2024-04-05] MEDS ORDERED: ePHEDrine sulfate 50 MG/ML AMP IV PRN (09:28)
[2024-04-05] MEDS ORDERED: ATROPINE SULFATE 0.1 MG/ML 10ML SYR IV PRN (09:28)
--- NOTE | 2024-04-05 11:02 | History & Physical Bridge Note ---
Date of Service April 05, 2024 History & Physical Bridge Note I have examined the patient, reviewed the History & Physical and in the interval since the performance of the History & Physical I have noted the following changes of clinical significance: no changes noted
--- NOTE | 2024-04-05 11:04 | History & Physical Report ---
Date of Service April 05, 2024 Assessment & Plan (1) Neurogenic claudication due to lumbar spinal stenosis: Plan: Hardware removal L4-S1, L2 to L4 decompresion, L2 S1 fusion History of Present Illness Chief Complaint: back and leg pain Primary Care Provider: Tony Barba 68 yo with back and leg pain here for surgical intervention. Allergies Allergy/AdvReac Type Severity Reaction Status Date / Time esomeprazole Allergy Unknown Hives Verified 04/05/24 07:35 pantoprazole Allergy Unknown Hives Verified 04/05/24 07:35 Penicillins Allergy Unknown Hives Verified 04/05/24 07:35 propoxyphene Allergy Unknown N/V Verified 04/05/24 07:35 (Darvocet), "OK with tylenol" simvastatin Allergy Unknown Mylagias Verified 04/05/24 07:35 Sulfa (Sulfonamide Allergy Unknown Hives Verified 04/05/24 07:35 Antibiotics) atenolol AdvReac Unknown Dizziness, Verified 04/05/24 07:35 felt "loopy" clarithromycin AdvReac Unknown Yeast Verified 04/05/24 07:35 infection (mouth) cortisone AdvReac Unknown Elevated BP Verified 04/05/24 07:35 prednisone AdvReac Unknown Elevated BP Verified 04/05/24 07:35 Home Medications Medication Instructions Recorded Confirmed Type aspirin 81 mg capsule 81 mg PO QAM 03/03/24 04/05/24 History atorvastatin 20 mg tablet 20 mg PO QAM 03/03/24 04/05/24 History furosemide 20 mg tablet 2,040 mg PO QAM PRN swelling 03/03/24 04/05/24 History hydrocodone 7.5 mg-acetaminophen 1 tab PO TID PRN Pain 03/03/24 04/05/24 History 325 mg tablet levothyroxine 50 mcg tablet 50 mcg PO QAM 03/03/24 04/05/24 History losartan 100 mg tablet (Cozaar) 100 mg PO HS 03/03/24 04/05/24 History metaxalone 800 mg tablet 800 mg PO TID PRN muscle spasms 03/03/24 04/05/24 History multivitamin 1 tab PO QAM 03/03/24 04/05/24 History omeprazole 40 mg capsule,delayed 40 mg PO QAM PRN GERD 03/03/24 04/05/24 History release potassium chloride 20 mEq 20 - 40 meq PO DAILY PRN taken 03/03/24 04/05/24 History tablet,extended release when taking furosemide ropinirole 0.25 mg tablet 0.25 mg PO HS 03/03/24 04/05/24 History Past Med/Surg History Problem List (Updated 04/05/24 @ 11:03 by Chris Suresh DO) Neurogenic claudication due to lumbar spinal stenosis Encounter for pre-operative examination Medical History (Updated 04/05/24 @ 11:03 by Chris Suresh DO) 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 r/t left jaw fracture Residual occasional locking Hx of malignant neoplasm of kidney Dx 2001, s/p left nephrectomy 2001 Anxiety and depression History of COVID-19 2019 + 2020: symptoms resolved History of asthma No current issues or inhalers RLS (restless legs syndrome) Muscle spasm Chronic GERD (gastroesophageal reflux disease) Hyperlipemia Hypertension Hypothyroidism Surgical History History of cardiac cath Prior to 2009- no stents Nausea and vomiting after administration of anesthetic agent Hx of removal of cyst right calf x2 Hx of left knee surgery to remove cartilege as a child History of total left knee replacement History of total right knee replacement Hx of fusion of cervical spine 2004 History of mandibular surgery R/t left jaw fracture (surgery to correct, implant present) Hx of lumbosacral spine surgery x3 Most recent 2017, L4-S1 fusion Hx of hysterectomy left ovary remains Hx of appendectomy Hx of cholecystectomy History of esophagogastroduodenoscopy (EGD) Hx of colonoscopy History of nephrectomy, left 2001 [place] teeth extracted Hx of tooth extraction all upper teeth Hx of tonsillectomy Social History Smoking Status: Current some day smoker Tobacco Type: Cigarettes Cigarettes Per Day: 1 pack/3-4 weeks; Second Hand Exposure: Yes (hx growing up); Do You Dip or Chew Tobacco: No; Tobacco Cessation Education Requested by Patient: No Hx Alcohol Use: Yes Alcohol type: wine Hx Substance Use: No Preferred Language: Welsh Communication Ability: Effective Artificial Marble Worker Required: No Beliefs That Will Affect Care: None Current Living Situation: Alone Current Living Situation Comment: sister will be staying with pt after sx. Feels Safe at Home: Yes Safety Concerns: Feels Safe At This Time Assistive Devices: Contacts, Denture - Upper and Glasses Physical Exam Physical Exam: alert and oriented heart regular lungs clear Results & Data Results & Data Vital Signs (Past 12 Hours) Vital Signs Temp Resp BP Pulse Ox O2 Del Method 04/05/24 07:44 36.8 C 20 174/101 H 95 Room Air
[2024-04-05] MEDS: BUPIVACAINE/EPINEPHRINE 0.25% 1:200,000 30 ML VIAL ONE (12:03)
[2024-04-05] MEDS: ceFAZolin 330 MG/ML 1 GM VIAL ONE (12:03)
[2024-04-05] MEDS: FLOSEAL HEMOSTATIC MATRIX 10ML TOP ONE (13:12)
--- NOTE | 2024-04-05 13:27 | Operative Report ---
Post Operative Report Pre & Post Diagnosis Operation Date: 04/05/24 09:55 Pre-Op Diagnosis: Lumbar Stenosis with Neurogenic Claudication Lumbar disc herniation with radiculopathy Obesity Post-Op Diagnosis: Same I identified the patient and participated in the time-out.: Yes Procedure Operation Date: 04/05/24 09:55 Actual Procedures #1 removal of posterior instrumentation L4-S1. #2 exploration of fusion L4-S1. #3 lumbar decompression with bilateral medial facetectomies and foraminotomies L2-L3 L3-L4 including excision of herniated foraminal disc herniation. #4 posterior spinal fusion L2-L5. #5 placement posterior instrumentation L2-S1. #6 interbody fusion L2-L3. #7 placement spiral 12 x 26 mm L2-L3. #8 placement locally harvested morselized autograft and posterior gutters. #9 placement infuse collagen sponge combined with Koros bone graft in the posterior lateral gutters Surgeon Chris Suresh, DO Medical Technologist Chemistry Rosie Gamboa Estimated Blood Loss 200 Findings See Below Patient is 5 foot 7 weighing over 116 kg with a BMI in excess of 40. The patient's body was did contribute to significant technical difficulty with positioning exposure and the procedure itself adding at least 50% increased operative time. Specimens None Indications This is a 68-year-old female presents above-mentioned diagnosis after failing course of nonoperative care is here for surgical invention. Description of Procedure Patient was met with identified informed consent obtained. Patient was then taken to the operative suite underwent patient placed in a prone position on the Arsalan table on top the Micheal frame. All bony prominences well-padded eyes inspected to ensure no external pressure placed upon the. This point the lumbar spine was prepped and draped in normal sterile fashion. Sharp dissection with the assistance of Bovie cautery to form down to and exposing the lamina and transverse processes of L2-L3 and instrumentation at L4-L5 and sacral ala bilaterally. Then proceeded with the hardware at L4-L5 and S1 levels bilaterally including cross-link. Explored the fusion mass noting it to be mature and intact. I performed a complete laminectomy of L3 including bilateral male facetectomies and foraminotomies addressing severe spinal stenosis. I then performed a complete laminectomy of L2 including bilateral medial facetectomies and foraminotomies as well as excision of the foraminal disc herniation on the right. After complete decompression pedicle screws screws were placed in L2-L3-L4 and S1 levels bilaterally with assistance of fluoroscopy and appropriately sized daina contoured and placed. By way of transforaminal approach on the right a complete discectomy of L2-L3 was performed endplates guided to subcortical bleeding bone and a 12 x 26 mm spiral cage filled with Morpheus bone graft tapped in position. Rods were then locked in final position bilaterally. The transverse processes of L2-L3-L4 burred to subcortical bleeding bone. Infuse collagen sponge, with Koros and local autograft placed in the posterior lateral gutters. 15 round BILL drain inserted. The incision was then closed with 1 Vicryl to fascia 2-0 Vicryl subcutaneously and 4 Monocryl for final skin closure. Steri-Strips sterile dressing placed. Patient waken taken to PACU stable condition. Please note spinal cord monitoring was utilized at the procedure no changes noted. Rosie Gamboa was present at the entire surgery involved the patient positioning complex portion of the surgery and possible closure. Im ordering 20 grams of Triple Streator Collagen Powder ([employer] [id number]) to treat an incision wound that was caused by a spine procedure. The incision is approximately 2 cm(W) x 4 cm(L) into the joint (D) in size and is a full thickness wound. Triple Streator collagen comes in 1 gram packets so 20 packets were ordered. Given the size of the wound, with light to moderate exudate I chose to order a 20 day supply. The patient will be provided instructions for proper application of the collagen wound kit. The patient will be asked to apply the collagen powder daily and then cover it with sterile dressings dispensed. Collagen was selected as I expect the collagen to attract monocytes and fibroblasts, act as a sacrificial substrate for MMPs, and ultimately proved a matrix for tissue and vessel growth. The collagen will act as a primary dressing in this scenario. It is medically necessary for proper healing of these wounds to improve bioavailability and contact with each wound surface, this is also to help prevent infection of wounds and promote healing ultimately leading to a better healing outcome and limit the risk of infection. I attest to the content of the Intraoperative Record and any orders documented therein. Any exceptions are noted below.
--- NOTE | 2024-04-05 13:58 | Fluoroscopy Report ---
FL lumbar spine 2-3V CLINICAL HISTORY: L2-S1 FUSION COMPARISON STUDY: None. FLUOROSCOPY TIME: 23 seconds FLUOROSCOPY IMAGES: 4 Ka,r: 18.2 mGy FINDINGS: There is 4 level posterior decompression and fusion within the lower lumbar spine. The exac t levels are difficult to determine on these spot images but appear to represent the L3-S1 levels. Th e hardware appears intact. IMPRESSION: Fluoroscopic assistance as above. ACT 112: Negative or not required by law. Electronically signed by: Arthur Gloria M.D. 04/05/2024 1:56 PM
[2024-04-05] MEDS: fentaNYL citrate PF 100 MCG/2 ML VIAL IV PRN (14:02)
[2024-04-05] MEDS: HYDROmorphone INJ 2 MG/ML SYR/VIAL IV PRN (14:40)
[2024-04-05] MEDS: HYDROmorphone INJ 1 MG/ML SYRINGE ONE (14:43)
--- NOTE | 2024-04-05 15:00 | Anesthesiology Progress Note ---
Date of Service April 05, 2024 Anesthesia Post Procedure Vital Signs Vital Signs: Temp Pulse Resp BP Pulse Ox O2 Del Method O2 Flow Rate 04/05/24 14:55 85 16 169/89 H 99 Nasal Cannula 2.5 04/05/24 14:45 77 14 155/90 H 99 Nasal Cannula 2.5 04/05/24 14:35 74 13 165/93 H 100 Nasal Cannula 2.5 04/05/24 14:25 98.1 F 75 12 167/99 H 99 Nasal Cannula 2.5 04/05/24 14:15 77 16 155/86 H 100 Oxymask 6 04/05/24 14:05 78 16 161/95 H 100 Oxymask 6 04/05/24 13:55 84 12 159/90 H 100 Oxymask 8 04/05/24 13:45 85 12 154/84 H 100 Oxymask 10 04/05/24 13:38 96.8 F L 86 12 174/101 H 96 Oxymask 10 04/05/24 07:44 98.2 F 20 174/101 H 95 Room Air Pain Intensity Bilateral Back: Pain Intensity: 7 Back: Pain Intensity: 4 Transfer of Care Handoff Completed per policy Notes Mental Status: alert / awake / arousable and participated in evaluation Patient Amnestic to Procedure: Yes Nausea / Vomiting: adequately controlled Pain: adequately controlled Airway Patency, RR, SpO2: stable & adequate BP & HR: stable & adequate Hydration State: stable & adequate Anesthetic Complications: no major complications apparent and Pt Satisfied with anesthetic care
[2024-04-05] MEDS ORDERED: hydrOXYzine HCl 25 MG TAB PO PRN (15:29)
[2024-04-05] MEDS ORDERED: NALOXONE HCL 0.4 MG/1 ML VIAL/CARP IV PRN (15:29)
[2024-04-05] MEDS ORDERED: PROMETHAZINE HCL 12.5 MG in SODIUM CHLORIDE 0.9% 50 ML IV PRN (15:29)
[2024-04-05] MEDS ORDERED: FAMOTIDINE 20 MG TAB PO PRN (15:29)
[2024-04-05] MEDS ORDERED: SOD PHOSPHATE/SOD BIPHOSPHATE ENEMA 132 ML BTL PR PRN (15:29)
[2024-04-05] MEDS ORDERED: DO NOT ADMINISTER FLU VACCINE PRN (15:29)
[2024-04-05] MEDS ORDERED: bisacodyL 10 MG SUPP PR PRN (15:29)
[2024-04-05] MEDS ORDERED: ACETAMINOPHEN 1,000 MG/100 ML VIAL IV PRN (15:29)
[2024-04-05] MEDS ORDERED: diphenhydrAMINE Capsule 25 MG CAP PO PRN (15:29)
[2024-04-05] MEDS ORDERED: ONDANSETRON 4 MG OD TAB PO PRN (15:29)
[2024-04-05] MEDS ORDERED: MAGNESIUM HYDROXIDE SUSP 30 ML UDC PO PRN (15:29)
[2024-04-05] MEDS ORDERED: HYDROmorphone INJ 0.5 MG/0.5 ML SYR IV PRN (15:29)
[2024-04-05] MEDS ORDERED: LORazepam 0.5 MG in SYRINGE 0.25 ML IV PRN (15:29)
[2024-04-05] MEDS ORDERED: METOCLOPRAMIDE HCL INJ 5 MG/ML 2 ML VIAL IV PRN (15:29)
[2024-04-05] MEDS ORDERED: ALUMINUM/MAGNESIUM SUSP 30 ML UDC PO PRN (15:29)
[2024-04-05] MEDS ORDERED: HYDROmorphone INJ 1 MG/ML SYRINGE IV PRN (15:29)
[2024-04-05] MEDS ORDERED: DO NOT ADMINISTER PNEUMOCOCCAL VACCINE PRN (15:29)
[2024-04-05] MEDS ORDERED: LORazepam 0.5 MG TAB PO PRN (15:29)
[2024-04-05] MEDS: CYCLOBENZAPRINE HCL 10 MG TAB PO PRN (16:03)
[2024-04-05] MEDS: LACTATED RINGER'S 1,000 ML IV SCH (16:05)
--- NOTE | 2024-04-05 16:08 | Hospitalist Consultation ---
Date of Consultation April 05, 2024 Assessment & Plan (1) Neurogenic claudication due to lumbar spinal stenosis: (2) S/P lumbar spine operation: Plan Unique Gibbs is a 68y/o F with PMHx significant for asthma, chronic back pain, GERD, fatty liver, history of colitis, history of left renal cell carcinoma s/p nephrectomy [2001], hyperlipidemia, history of cardiac catheterization, HTN and osteoporosis who was referred to our [facility] for post-operative medical management. Patient is now s/p hardware removal L4-S1, L2-L4 decompression and L2-S1 fusion with Dr. Suresh for treatment of neurogenic claudication due to lumbar spinal stenosis. Neurogenic Claudication 2/2 Lumbar Spinal Stenosis S/P Lumbar Spine Operation POD#0 s/p hardware removal L4-S1, L2-L4 decompression and L2-S1 fusion with Dr. Suresh. EBL: 200mL & Pre-Op Hgb: 14 [last checked on 03/11/24] Per ortho for pain control, wound care, anticoagulation and activities. Continue incentive spirometry, PT/OT when appropriate per ortho team. Monitor H/H for acute blood loss anemia and transfuse blood products PRN. CBC w/ diff and BMP in AM as per ortho team - will follow results closely and trend Hgb. Hyperlipidemia: Can continue ENGINEERING SCIENTIST aspirin and atorvastatin. HTN BP stable in the 130s/80s post-operatively. Pt on losartan 100mg HS ENGINEERING SCIENTIST; will continue. Pt takes 40mg Lasix PRN for LE swelling; on hold. Continue to assess volume status, pt receiving IVF w/ LR @ 150cc/hr as per ortho team. Chronic Back Pain & Muscle Spasms Pt taking ropinirole 0.25mg HS ENGINEERING SCIENTIST; will continue. Pt has PRN 10mg Flexeril TID available for muscle spasms. Holding ENGINEERING SCIENTIST metaxalone and hydrocodone-acetaminophen as per ortho. Hypothyroidism: Can continue ENGINEERING SCIENTIST levothyroxine. DVT Prophylaxis: SCDs/TEDs - As per ortho team Code Status: FULL CODE PCP: Dr. Tony Barba ([facility]) Disposition: Patient admitted in Med/Surg, discharge planning per primary orthopedic team. Thank you for this consultation. We will follow the patient with you during their hospital stay. You can reach a member of the [facility] 06/04 via [employer]. Patient seen in collaboration with Dr. Loyola. Please see addendum. I spent a total of 40 minutes coordinating, documenting, and providing care for this patient excluding time spent in the performance of separately billed services. This included personally reviewing all current laboratories and imaging studies, medical reconciliation, outpatient chart review and discussion with specialists. This chart was completed in part utilizing Speech Voice Recognition Software. Grammatical errors, random word insertions, pronoun errors, and incomplete sentences are an occasional consequence of this system due to software limitations, ambient noise, and hardware issues. Any formal questions or concerns about the content, text, or information contained within the body of this dictation should be directly addressed to the provider for clarification. Supervising Physician Co-Signing Physician Notes Pt was seen and examined by myself, Ariana Loyola MD on the day of service. Care was coordinated with Ana Hansen PA-C. 68yoF s/p lumbar hardware removal(L4-S1), lumbar decompression(L2-L4) and spinal fusion (L2-L5) today. Having muscle spasms but states pain is controlled. Denies chest pain, SOB, palps. Continue to monitor hgb post op. PT/OT, DVT prophylaxis per primary team Lower extremity edema- prn po lasix ordered by primary for lower extremity swelling Otherwise as above I spent a total [id number] coordinating, documenting, and providing care for this patient excluding time spent in the performance of separately billed services History of Present Illness Reason for Consultation: Post-Operative Medical Management Requesting Physician: Chris Suresh DO Attending Physician: Chris Suresh DO History of Present Illness Unique Gibbs is a 68y/o F with PMHx significant for asthma, chronic back pain, GERD, fatty liver, history of colitis, history of left renal cell carcinoma [2002], hyperlipidemia, HTN and osteoporosis who was referred to our [facility] for post-operative medical management. Patient is now s/p hardware removal L4-S1, L2-L4 decompression and L2-S1 fusion with Dr. Suresh for treatment of neurogenic claudication due to lumbar spinal stenosis. History obtained from patient and associated chart review. Patient seen and examined at bedside. Patient reporting 7/10 pain in her lower back region. She is also endorsing lumbar muscle spasms, which she mentions have been ongoing for years. She received 50mg po Ultram and 10mg po Flexeril while I was in the room. She denies any SOB, chest pain or N/V. Rivera catheter is intact and draining yellow urine without issue. Made patient aware that our team is available if she has any questions or concerns. Allergies Allergy/AdvReac Type Severity Reaction Status Date / Time esomeprazole Allergy Unknown Hives Verified 04/05/24 07:35 pantoprazole Allergy Unknown Hives Verified 04/05/24 07:35 Penicillins Allergy Unknown Hives Verified 04/05/24 07:35 propoxyphene Allergy Unknown N/V Verified 04/05/24 07:35 (Darvocet), "OK with tylenol" simvastatin Allergy Unknown Mylagias Verified 04/05/24 07:35 Sulfa (Sulfonamide Allergy Unknown Hives Verified 04/05/24 07:35 Antibiotics) atenolol AdvReac Unknown Dizziness, Verified 04/05/24 07:35 felt "loopy" clarithromycin AdvReac Unknown Yeast Verified 04/05/24 07:35 infection (mouth) cortisone AdvReac Unknown Elevated BP Verified 04/05/24 07:35 prednisone AdvReac Unknown Elevated BP Verified 04/05/24 07:35 Home Medications Medication Instructions Recorded Confirmed Type aspirin 81 mg capsule 81 mg PO QAM 03/03/24 04/05/24 History atorvastatin 20 mg tablet 20 mg PO QAM 03/03/24 04/05/24 History furosemide 20 mg tablet 2,040 mg PO QAM PRN swelling 03/03/24 04/05/24 History hydrocodone 7.5 mg-acetaminophen 1 tab PO TID PRN Pain 03/03/24 04/05/24 History 325 mg tablet levothyroxine 50 mcg tablet 50 mcg PO QAM 03/03/24 04/05/24 History losartan 100 mg tablet (Cozaar) 100 mg PO HS 03/03/24 04/05/24 History metaxalone 800 mg tablet 800 mg PO TID PRN muscle spasms 03/03/24 04/05/24 History multivitamin 1 tab PO QAM 03/03/24 04/05/24 History omeprazole 40 mg capsule,delayed 40 mg PO QAM PRN GERD 03/03/24 04/05/24 History release potassium chloride 20 mEq 20 - 40 meq PO DAILY PRN taken 03/03/24 04/05/24 History tablet,extended release when taking furosemide ropinirole 0.25 mg tablet 0.25 mg PO HS 03/03/24 04/05/24 History Patient History Medical History 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 r/t left jaw fracture Residual occasional locking Hx of malignant neoplasm of kidney Dx 2001, s/p left nephrectomy 2001 Anxiety and depression History of COVID-19 2019 + 2020: symptoms resolved History of asthma No current issues or inhalers RLS (restless legs syndrome) Muscle spasm Chronic GERD (gastroesophageal reflux disease) Hyperlipemia Hypertension Hypothyroidism Surgical History History of cardiac cath Prior to 2009- no stents Nausea and vomiting after administration of anesthetic agent Hx of removal of cyst right calf x2 Hx of left knee surgery to remove cartilege as a child History of total left knee replacement History of total right knee replacement Hx of fusion of cervical spine 2004 History of mandibular surgery R/t left jaw fracture (surgery to correct, implant present) Hx of lumbosacral spine surgery x3 Most recent 2017, L4-S1 fusion Hx of hysterectomy left ovary remains Hx of appendectomy Hx of cholecystectomy History of esophagogastroduodenoscopy (EGD) Hx of colonoscopy History of nephrectomy, left 2001 [place] teeth extracted Hx of tooth extraction all upper teeth Hx of tonsillectomy Social History Smoking Status: Current some day smoker Tobacco Type: Cigarettes Cigarettes Per Day: 1 pack/3-4 weeks; Second Hand Exposure: Yes (hx growing up); Do You Dip or Chew Tobacco: No; Tobacco Cessation Education Requested by Patient: No Hx Alcohol Use: Yes Alcohol type: wine Hx Substance Use: No Preferred Language: Mosotho Communication Ability: Effective Chief Librarian Extension Department Required: No Beliefs That Will Affect Care: None Current Living Situation: Alone Current Living Situation Comment: sister will be staying with pt after sx. Feels Safe at Home: Yes Safety Concerns: Feels Safe At This Time Assistive Devices: Contacts, Denture - Upper and Glasses Review of Systems Review of Systems: At least ten systems reviewed and negative, except as noted in the HPI. Physical Exam Physical Exam: General: WD/WN, vitals as above, NAD, sitting up in bed, pleasant, conversing appropriately. A+Ox3, euthymic affect. HEENT: Normocephalic, atraumatic. Normal inspection, PERRL, conjunctivae normal, anicteric sclerae, oropharynx normal. Respiratory: Normal respiratory effort, lungs clear to auscultation, no wheeze, rales, rhonchi. No accessory muscle use. Cardiovascular: Regular rate, rhythm, no murmur, normal peripheral pulses, no BLE edema. Vessels: No JVD. Abdomen/GI: Normal bowel sounds, soft, nontender, no hepatosplenomegaly. Extremities/Musculoskeletal: No cyanosis or clubbing, extremities motor strength not formally tested. Neurologic: EOMI, accommodation nl, no face palsy, no dysarthria, CN's II-XI not formally tested. Skin: No rashes, normal color, warm/dry. BILL drain x 1 intact with adequate sanguineous output, did not fully visualize surgical site. Results & Data Results & Data Vital Signs (Past 12 Hours) Vital Signs Temp Pulse Pulse Resp BP BP Pulse Ox 04/05/24 15:44 36.5 C 70 20 159/94 H 100 04/05/24 15:10 04/05/24 15:10 36.5 C 77 18 159/94 H 99 04/05/24 15:05 68 18 122/98 99 04/05/24 14:55 85 16 169/89 H 99 04/05/24 14:45 77 14 155/90 H 99 04/05/24 14:35 74 13 165/93 H 100 04/05/24 14:25 36.7 C 75 12 167/99 H 99 04/05/24 14:15 77 16 155/86 H 100 04/05/24 14:05 78 16 161/95 H 100 04/05/24 13:55 84 12 159/90 H 100 04/05/24 13:45 85 12 154/84 H 100 04/05/24 13:38 36.0 C L 86 12 174/101 H 96 04/05/24 07:44 36.8 C 20 174/101 H 95 O2 Del Method O2 Flow Rate 07/23/24 15:44 Room Air 04/05/24 15:10 Nasal Cannula 2.5 04/05/24 15:10 Nasal Cannula 2.5 04/05/24 15:05 Nasal Cannula 2.5 04/05/24 14:55 Nasal Cannula 2.5 04/05/24 14:45 Nasal Cannula 2.5 04/05/24 14:35 Nasal Cannula 2.5 04/05/24 14:25 Nasal Cannula 2.5 04/05/24 14:15 Oxymask 6 04/05/24 14:05 Oxymask 6 04/05/24 13:55 Oxymask 8 04/05/24 13:45 Oxymask 10 04/05/24 13:38 Oxymask 10 04/05/24 07:44 Room Air Diagnostic Findings Lumbar Spine X-Ray 04/05/24 07:00 FL lumbar spine 2-3V CLINICAL HISTORY: L2-S1 FUSION COMPARISON STUDY: None. FLUOROSCOPY TIME: 23 seconds FLUOROSCOPY IMAGES: 4 Ka,r: 18.2 mGy FINDINGS: There is 4 level posterior decompression and fusion within the lower lumbar spine. The exact levels are difficult to determine on these spot images but appear to represent the L3-S1 levels. The hardware appears intact. IMPRESSION: Fluoroscopic assistance as above. ACT 112: Negative or not required by law. Electronically signed by: Arthur Gloria M.D. 04/05/2024 1:56 PM Medications Administered Cyclobenzaprine HCl (Cyclobenzaprine Hcl 10 Mg Tab) 10 mg PO TID PRN PRN Reason: Spasms Stop: 05/05/24 15:47 Last Admin: 04/05/24 16:03 Dose: 10 mg Documented By: ROLY Gabapentin (Gabapentin 300 Mg Cap) 300 mg PO PREOP JESSICA Stop: 04/05/24 18:00 Last Admin: 04/05/24 08:03 Dose: 300 mg Documented By: ALYSEU Hydromorphone HCl (Hydromorphone Inj 2 Mg/Ml Syr/Vial) 0.5 mg IV Q5M PRN PRN Reason: PACU Use Only-Pain Stop: 04/05/24 22:39 Last Admin: 04/05/24 14:45 Dose: 0.5 mg Documented By: Admin: 04/05/24 14:40 Dose: 0.5 mg Documented By: WT Lactated Ringer's (Lr) 1,000 mls @ 15 mls/hr IV .Q24H [facility] Stop: 04/06/24 05:59 Last Infusion: 04/05/24 11:22 Dose: Infused Documented By: Admin: 04/05/24 07:44 Dose: 15 mls/hr Documented By: PREET Lactated Ringer's (Lr) 1,000 mls @ 60 mls/hr IV .[id number] JESSICA Stop: 04/05/24 22:39 Last Admin: 04/05/24 08:02 Dose: Not Given Documented By: PREET Vancomycin HCl 1,750 mg/ (Sodium Chloride) 535 mls @ 200 mls/hr IV PREOP [facility] Stop: 04/05/24 18:00 Last Infusion: 04/05/24 10:37 Dose: Infused Documented By: Admin: 04/05/24 07:44 Dose: 200 mls/hr Documented By: PREET Lactated Ringer's (Lr) 1,000 mls @ 150 mls/hr IV .[id number] [facility] Stop: 05/05/24 15:28 Last Admin: 04/05/24 16:05 Dose: 150 mls/hr Documented By: ROLY Discontinued Medications Bupivacaine HCl/Epinephrine Bitart (Bupivacaine/Epinephrine 0.25% 1:200,000 30 Ml Vial) Confirm Administered Dose 30 ml .ROUTE .STK-MED ONE Stop: 04/05/24 11:05 Last Admin: 04/05/24 12:03 Dose: 25 ml Documented By: GMB Cefazolin Sodium (Cefazolin 330 Mg/Ml 1 Gm Vial) Confirm Administered Dose 990 mg .ROUTE .STK-MED ONE Stop: 04/05/24 11:05 Last Admin: 04/05/24 12:03 Dose: 990 mg Documented By: GMB Fentanyl Citrate (Fentanyl Citrate Pf 100 Mcg/2 Ml Vial) 25 mcg IV Q5M PRN PRN Reason: PACU Use Only-Pain Stop: 04/05/24 17:28 Last Admin: 04/05/24 14:17 Dose: 25 mcg Documented By: Admin: 04/05/24 14:12 Dose: 25 mcg Documented By: Admin: 04/05/24 14:07 Dose: 25 mcg Documented By: Admin: 04/05/24 14:02 Dose: 25 mcg Documented By: WT Hydromorphone HCl (Hydromorphone Inj 1 Mg/Ml Syringe) Confirm Administered Dose 1 mg .ROUTE .STK-MED ONE Stop: 04/05/24 14:42 Last Admin: 04/05/24 14:43 Dose: Not Given Documented By: WT Miscellaneous ( Floseal Hemostatic Matrix 10ml) 20 ml TOP ONCE ONE Stop: 04/05/24 12:04 Last Admin: 04/05/24 13:12 Dose: 20 ml Documented By: PRISCILLAB
[2024-04-05] MEDS ORDERED: POTASSIUM CHLORIDE CRTAB 20 MEQ TABCR PO PRN (16:28)
[2024-04-05] MEDS: CLINDAMYCIN/D5W 600 MG/50 ML BAG IV SCH (16:39)
[2024-04-05] MEDS: traMADol HCL 50 MG TABLET PO PRN (16:45)
[2024-04-05] MEDS: oxyCODONE HCL IR 5 MG TAB (IMMEDIATE RELEASE) PO PRN (18:39)
[2024-04-05] MEDS: DOCUSATE SODIUM/SENNA 50/8.6MG TAB PO SCH (19:52)
[2024-04-05] MEDS: LOSARTAN POTASSIUM 50 MG TAB PO SCH (19:52)
[2024-04-05] MEDS: rOPINIRole HCL 0.25 MG TABLET PO SCH (19:52)
[2024-04-06] MEDS: LEVOTHYROXINE SODIUM 50 MCG TABLET PO SCH (05:16)
[2024-04-06] MEDS: POLYETHYLENE (MIRALAX) 17 GM PACK PO SCH (05:16)
[2024-04-06] MEDS: ACETAMINOPHEN 500 MG TAB PO PRN (07:39)
[2024-04-06 08:10] LABS: Hematocrit (blood only) 33.7 % (37.0-47.0); Hemoglobin 11.4 g/dl (12.0-16.0); Immature Granulocytes # (auto) 0.05 K/uL (0.01-0.20); Immature Granulocytes % (auto) 0.5 %; Lymphocytes # (auto) 0.92 K/uL (1.20-3.40); Lymphocytes % (auto) 8.5 %; Mean Corpuscular Hemoglobin 32.3 pg (25.0-34.0); Mean Corpuscular Hgb Conc 33.8 g/dL (32.0-36.0); Mean Corpuscular Volume 95.5 fL (80.0-100.0); Mean Platelet Volume 11.6 fL (9.4-12.4); Monocytes # (auto) 0.49 K/uL (0.11-0.59); Monocytes % (auto) 4.5 %; Neutrophils # (auto) 9.41 K/uL (1.40-6.50); Neutrophils % (auto) 86.5 %; Platelet Count 174 K/uL (130-400); RDW Coefficient of Variation 11.7 % (11.5-14.5); RDW Standard Deviation 40.2 fL (36.4-46.3); Red Blood Count 3.53 M/uL (4.20-5.40); White Blood Count 10.87 K/ul (4.8-10.8)
[2024-04-06] MEDS: ATORVASTATIN 20 MG TAB PO SCH (08:15)
[2024-04-06] MEDS: MULTIVITAMIN TAB PO SCH (08:15)
[2024-04-06] MEDS: ASPIRIN 81 MG ECTAB PO SCH (08:15)
[2024-04-06] MEDS: dexAMETHasone 6 MG in SYRINGE 0 ML IV SCH (08:16)
[2024-04-06 08:34] LABS: BUN Creatinine Ratio 13.8 (10-20); Calcium 9.1 mg/dl (8.6-10.3); Est GFR (African American) 87.8 ml/min; Est GFR (Non-African American) 75.8 ml/min; Potassium 4.8 mmol/L (3.5-5.1)
--- NOTE | 2024-04-06 09:41 | Orthopedic Progress Note ---
Date of Service April 06, 2024 Assessment & Plan (1) Neurogenic claudication due to lumbar spinal stenosis: Plan: This time we will initiate physical therapy monitor her BILL output hopefully discharge home later after this week. Admission and Anticipated Discharge Date Admission Date: April 05, 2024 Subjective Back pain controlled leg symptoms markedly improved Physical Exam Physical Exam: Patient appears comfortable. Discussed when to testing. Results & Data Vital Signs (Past 12 Hours) Vital Signs Temp Pulse Pulse Resp BP BP Pulse Ox 04/06/24 07:54 36.7 C 83 14 126/74 96 04/06/24 02:48 36.5 C 85 18 142/94 H 96 04/05/24 23:55 36.4 C L 85 18 141/88 H 94 O2 Del Method 04/06/24 07:54 Room Air 04/06/24 02:48 Room Air 04/05/24 23:55 Room Air Queries Orthopedic Spine Acute Posthemorrhagic Anemia: Yes Vertebral Fracture Secondary to Osteoporosis: Yes
--- NOTE | 2024-04-06 15:15 | Hospitalist Progress Note ---
Date of Service April 06, 2024 Assessment & Plan (1) Neurogenic claudication due to lumbar spinal stenosis: (2) S/P lumbar spine operation: Plan Unique Gibbs is a 68y/o F with PMHx significant for asthma, chronic back pain, GERD, fatty liver, history of colitis, history of left renal cell carcinoma s/p nephrectomy [2001], hyperlipidemia, history of cardiac catheterization, HTN and osteoporosis who [facility]. Patient is now s/p hardware removal L4-S1, L2-L4 decompression and L2-S1 fusion with Dr. Suresh for treatment of neurogenic claudication due to lumbar spinal stenosis. Neurogenic Claudication 2/2 Lumbar Spinal Stenosis S/P Lumbar Spine Operation POD#1 s/p hardware removal L4-S1, L2-L4 decompression and L2-S1 fusion with Dr. Suresh. EBL: 200mL & Pre-Op Hgb: 14 Hgb 11.4 today - will continue to trend; Monitor H/H for acute blood loss anemia and transfuse blood products PRN. Per ortho for pain control, wound care, anticoagulation and activities. Continue incentive spirometry, PT/OT when appropriate per ortho team. WBC slightly elevated at 10.87 this morning - likely 2/2 post-operative inflammation, will trend. Hyperlipidemia: Can continue [employer] aspirin and atorvastatin. HTN BP has remained stable post-operatively; Pt on losartan 100mg HS [employer] - will continue. Pt takes 40mg Lasix PRN for LE swelling - on hold. Continue to assess volume status, IVF replacement has been stopped. Chronic Back Pain & Muscle Spasms Pt taking ropinirole 0.25mg HS [employer]; will continue. Pt has PRN 10mg Flexeril TID available for muscle spasms. Holding [employer] metaxalone and hydrocodone-acetaminophen as per ortho. Hypothyroidism: Can continue [employer] levothyroxine. DVT Prophylaxis: SCDs/TEDs - As per ortho team Code Status: FULL CODE PCP: Dr. Tony Barba ([facility]) Disposition: Patient admitted in Med/Surg, discharge planning per primary orthopedic team. We will continue to follow the patient with you during their hospital stay. You can reach a [facility] via [employer]. Patient seen in collaboration with Dr. Loyola. Please see addendum. I spent a total of 40 minutes coordinating, documenting, and providing care for this patient excluding time spent in the performance of separately billed services. This included personally reviewing all current laboratories and imaging studies, medical reconciliation, outpatient chart review and discussion with specialists. This chart was completed in part utilizing Speech Voice Recognition Software. Grammatical errors, random word insertions, pronoun errors, and incomplete sentences are an occasional consequence of this system due to software limitations, ambient noise, and hardware issues. Any formal questions or concerns about the content, text, or information contained within the body of this dictation should be directly addressed to the provider for clarification. Admission and Anticipated Discharge Date Admission Date: April 05, 2024 Supervising Physician Co-Signing Physician Notes Pt was seen and examined by myself, Ariana Loyola MD on the day of service. Care was coordinated with Ana Hansen PA-C. 68yoF s/p lumbar hardware removal(L4-S1), lumbar decompression(L2-L4) and spinal fusion (L2-L5) on 04/05/24. Seen in the AM, denied acute concerns at that time. Having muscle spasms but states pain is controlled. Denies chest pain, SOB, palps. Continue to monitor hgb post op. PT/OT, DVT prophylaxis per primary team Lower extremity edema- prn po lasix ordered by primary for lower extremity swelling Otherwise as above I spent a total [id number] coordinating, documenting, and providing care for this patient excluding time spent in the performance of separately billed services Subjective Patient seen and examined at bedside in room E321-1. Patient reporting some improvement in her pain; She now mentions her pain is a 4/10 this morning. She was up and moving with OT while I was in the room this morning. Goal was to have her Rivera catheter removed after seeing PT. She does report that the muscle spasms are still ongoing. She has Flexeril ordered PRN by ortho - encouraged her to utilize it if spasms persist. Review of Systems Review of Systems: At least ten systems reviewed and negative, except as noted in the HPI. Physical Exam Physical Exam: General: WD/WN, vitals as above, NAD, sitting on toilet in bathroom, pleasant, conversing appropriately. A+Ox3, euthymic affect. HEENT: Normocephalic, atraumatic. Normal inspection, PERRL, conjunctivae normal, anicteric sclerae, oropharynx normal. Respiratory: Normal respiratory effort, lungs clear to auscultation, no wheeze, rales, rhonchi. No accessory muscle use. Cardiovascular: Regular rate, rhythm, no murmur, normal peripheral pulses, no BLE edema. Vessels: No JVD. Abdomen/GI: Normal bowel sounds, soft, nontender, no hepatosplenomegaly. Extremities/Musculoskeletal: No cyanosis or clubbing, extremities motor strength not formally tested. Neurologic: EOMI, accommodation nl, no face palsy, no dysarthria, CN's II-XI not formally tested. Skin: No rashes, normal color, warm/dry. BILL drain x 1 intact with adequate sanguineous output, did not fully visualize surgical site. Results & Data Results & Data Vital Signs (Past 12 Hours) Vital Signs Temp Pulse Pulse Resp BP BP Pulse Ox 04/06/24 14:48 36.8 C 75 18 158/98 H 97 04/06/24 13:28 37.0 C 82 14 128/74 96 04/06/24 07:54 36.7 C 83 14 126/74 96 O2 Del Method 04/06/24 14:48 Room Air 04/06/24 13:28 Room Air 04/06/24 07:54 Room Air Laboratory Results Short CBC 04/06/24 Range/Units 07:43 WBC 10.87 H (4.8-10.8) K/ul Hgb 11.4 L (12.0-16.0) g/dl Hct 33.7 L (37.0-47.0) % Plt Count 174 (130-400) K/uL BMP 04/06/24 07:43 Sodium 141 Potassium 4.8 Chloride 107 Carbon Dioxide 29 BUN 11 Creatinine 0.80 Glucose 139 H Calcium 9.1 Diagnostic Findings Lumbar Spine X-Ray 04/05/24 07:00 FL lumbar spine 2-3V CLINICAL HISTORY: L2-S1 FUSION COMPARISON STUDY: None. FLUOROSCOPY TIME: 23 seconds FLUOROSCOPY IMAGES: 4 Ka,r: 18.2 mGy FINDINGS: There is 4 level posterior decompression and fusion within the lower lumbar spine. The exact levels are difficult to determine on these spot images but appear to represent the L3-S1 levels. The hardware appears intact. IMPRESSION: Fluoroscopic assistance as above. ACT 112: Negative or not required by law. Electronically signed by: Arthur Gloria M.D. 04/05/2024 1:56 PM Medications Administered Acetaminophen (Acetaminophen 500 Mg Tab) 1,000 mg PO Q8H PRN PRN Reason: MILD Pain Scale 1,2,3 & Pre PT Stop: 05/05/24 15:28 Last Admin: 04/06/24 07:39 Dose: 1,000 mg Documented By: SYL Aspirin (Aspirin 81 Mg Ectab) [facility] Stop: 05/06/24 08:59 Last Admin: 04/06/24 08:15 Dose: 81 mg Documented By: SYL Atorvastatin Calcium (Atorvastatin 20 Mg Tab) 20 [facility] [place] Stop: 05/06/24 08:59 Last Admin: 04/06/24 08:15 Dose: 20 mg Documented By: SYL Cyclobenzaprine HCl (Cyclobenzaprine Hcl 10 Mg Tab) 10 mg PO TID PRN PRN Reason: Spasms Stop: 05/05/24 15:47 Last Admin: 04/06/24 14:04 Dose: 10 mg Documented By: Admin: 04/05/24 16:03 Dose: 10 mg Documented By: ROLY Dexamethasone 6 mg/ Syringe 1.5 mls @ 1 mls/min IV DAILY [facility] Stop: 04/08/24 09:02 Last Admin: 04/06/24 08:16 Dose: 1 mls/min Documented By: SYL Levothyroxine Sodium (Levothyroxine Sodium 50 Mcg Tablet) 50 mcg PO DAILYBB [facility] Stop: 05/06/24 06:29 Last Admin: 04/06/24 05:16 Dose: 50 mcg Documented By: MICHELLE Losartan Potassium (Losartan Potassium 50 Mg Tab) 100 mg PO HS [facility] Stop: 05/05/24 20:59 Last Admin: 04/05/24 19:52 Dose: 100 mg Documented By: MICHELLE Miscellaneous (Omeprazole 40 Mg - Order Awaiting Action) 1 each N/A QS [facility] Stop: 05/06/24 00:00 Last Admin: 04/06/24 08:18 Dose: Not Given Documented By: Admin: 04/05/24 23:36 Dose: Not Given Documented By: MICHELLE Multivitamins (Multivitamin Tab) 1 [facility] Stop: 05/06/24 08:59 Last Admin: 04/06/24 08:15 Dose: 1 tab Documented By: SYL Oxycodone HCl (Oxycodone Hcl Ir 5 Mg Tab (Immediate Release)) 5 - 10 mg PO Q4H PRN PRN Reason: Pain & Pre PT Stop: 04/19/24 15:28 Last Admin: 04/06/24 11:29 Dose: 10 mg Documented By: Admin: 04/06/24 04:10 Dose: 10 mg Documented By: Admin: 04/05/24 23:51 Dose: 10 mg Documented By: Admin: 04/05/24 18:39 Dose: 10 mg Documented By: ROLY Polyethylene Glycol (Polyethylene (Miralax) 17 Gm Pack) 17 gm PO Q6 [facility] Stop: 05/06/24 05:59 Last Admin: 04/06/24 12:55 Dose: 17 gm Documented By: Admin: 04/06/24 05:16 Dose: 17 gm Documented By: MICHELLE Ropinirole HCl (Ropinirole Hcl 0.25 Mg Tablet) 0.25 mg PO [facility] Stop: 05/05/24 20:59 Last Admin: 04/05/24 19:52 Dose: 0.25 mg Documented By: MICHELLE Senna/Docusate Sodium (Docusate Sodium/Senna 50/8.6mg Tab) 2 tab PO [facility] Stop: 05/05/24 20:59 Last Admin: 04/05/24 19:52 Dose: 2 tab Documented By: MICHELLE Tramadol HCl (Tramadol Hcl 50 Mg Tablet) 50 - 100 mg PO Q4H PRN PRN Reason: Moderate-Severe pain & Pre PT Stop: 05/05/24 15:28 Last Admin: 04/05/24 16:45 Dose: 50 mg Documented By: ROLY Discontinued Medications Bupivacaine HCl/Epinephrine Bitart (Bupivacaine/Epinephrine 0.25% 1:200,000 30 Ml Vial) Confirm Administered Dose 30 ml .ROUTE .STK-MED ONE Stop: 04/05/24 11:05 Last Admin: 04/05/24 12:03 Dose: 25 ml Documented By: YIMI Cefazolin Sodium (Cefazolin 330 Mg/Ml 1 Gm Vial) Confirm Administered Dose 990 mg .ROUTE .STK-MED ONE Stop: 04/05/24 11:05 Last Admin: 04/05/24 12:03 Dose: 990 mg Documented By: GMB Fentanyl Citrate (Fentanyl Citrate Pf 100 Mcg/2 Ml Vial) 25 mcg IV Q5M PRN PRN Reason: PACU Use Only-Pain Stop: 04/05/24 17:28 Last Admin: 04/05/24 14:17 Dose: 25 mcg Documented By: Admin: 04/05/24 14:12 Dose: 25 mcg Documented By: Admin: 04/05/24 14:07 Dose: 25 mcg Documented By: Admin: 04/05/24 14:02 Dose: 25 mcg Documented By: WT Gabapentin (Gabapentin 300 Mg Cap) 300 mg PO PREOP JESSICA Stop: 04/05/24 18:00 Last Admin: 04/05/24 08:03 Dose: 300 mg Documented By: JVU Hydromorphone HCl (Hydromorphone Inj 2 Mg/Ml Syr/Vial) 0.5 mg IV Q5M PRN PRN Reason: PACU Use Only-Pain Stop: 04/05/24 22:39 Last Admin: 04/05/24 14:45 Dose: 0.5 mg Documented By: Admin: 04/05/24 14:40 Dose: 0.5 mg Documented By: WT Hydromorphone HCl (Hydromorphone Inj 1 Mg/Ml Syringe) Confirm Administered Dose 1 mg .ROUTE .STK-MED ONE Stop: 04/05/24 14:42 Last Admin: 04/05/24 14:43 Dose: Not Given Documented By: WT Lactated Ringer's (Lr) 1,000 mls @ 15 mls/hr IV .Q24H JESSICA Stop: 04/06/24 05:59 Last Infusion: 04/05/24 11:22 Dose: Infused Documented By: Admin: 04/05/24 07:44 Dose: 15 mls/hr Documented By: ALYSEU Lactated Ringer's (Lr) 1,000 mls @ 60 mls/hr IV .[id number] JESSICA Stop: 04/05/24 22:39 Last Admin: 04/05/24 08:02 Dose: Not Given Documented By: ALYSEU Vancomycin HCl 1,750 mg/ (Sodium Chloride) 535 mls @ 200 mls/hr IV PREOP JESSICA Stop: 04/05/24 18:00 Last Infusion: 04/05/24 10:37 Dose: Infused Documented By: Admin: 04/05/24 07:44 Dose: 200 mls/hr Documented By: PREET Lactated Ringer's (Lr) 1,000 mls @ 150 mls/hr IV .Q6H40M [facility] Stop: 05/05/24 15:28 Last Infusion: 04/06/24 02:54 Dose: Infused Documented By: Admin: 04/05/24 19:58 Dose: 150 mls/hr Documented By: TKAriana Infusion: 04/05/24 19:58 Dose: Infused Documented By: Admin: 04/05/24 16:05 Dose: 150 mls/hr Documented By: ROLY Clindamycin Phosphate (Cleocin/D5w) 600 mg in 50 mls @ 100 mls/hr IV Q8H [facility] Stop: 04/06/24 00:29 Last Infusion: 04/05/24 23:52 Dose: Infused Documented By: Admin: 04/05/24 23:21 Dose: 100 mls/hr Documented By: Infusion: 04/05/24 17:13 Dose: Infused Documented By: Admin: 04/05/24 16:39 Dose: 100 mls/hr Documented By: ROLY Miscellaneous ( Floseal Hemostatic Matrix 10ml) 20 ml TOP ONCE ONE Stop: 04/05/24 12:04 Last Admin: 04/05/24 13:12 Dose: 20 ml Documented By: YIMI
[2024-04-06] MEDS: OMEPRAZOLE 20 MG PO PRN (16:49)
[2024-04-07 06:06] LABS: Hematocrit (blood only) 33.8 % (37.0-47.0); Hemoglobin 11.5 g/dl (12.0-16.0); Mean Corpuscular Hemoglobin 33.1 pg (25.0-34.0); Mean Corpuscular Volume 97.4 fL (80.0-100.0); Mean Platelet Volume 11.4 fL (9.4-12.4); Platelet Count 158 K/uL (130-400); RDW Coefficient of Variation 11.9 % (11.5-14.5); RDW Standard Deviation 42.4 fL (36.4-46.3); Red Blood Count 3.47 M/uL (4.20-5.40); White Blood Count 10.91 K/ul (4.8-10.8)
[2024-04-07 06:25] LABS: BUN Creatinine Ratio 19.2 (10-20); Calcium 9.2 mg/dl (8.6-10.3); Creatinine Clr Calc Pharmacy 91.2 ml/min; Est GFR (African American) 90.5 ml/min; Est GFR (Non-African American) 78.1 ml/min; Magnesium 1.9 mg/dl (1.7-2.4); Phosphorus 3.3 mg/dl (2.5-4.9); Potassium 4.6 mmol/L (3.5-5.1)
--- NOTE | 2024-04-07 09:26 | Orthopedic Progress Note ---
Date of Service April 07, 2024 Assessment & Plan (1) Neurogenic claudication due to lumbar spinal stenosis: Plan: At this time continue physical therapy monitor BILL operatively discharge home in the next few days. Admission and Anticipated Discharge Date Admission Date: April 05, 2024 Subjective Back pain controlled leg symptoms improved Physical Exam Physical Exam: Patient is in the chair at the bedside. She is comfortable. Is consented johana owens. Results & Data Vital Signs (Past 12 Hours) Vital Signs Temp Pulse Resp BP Pulse Ox O2 Del Method 04/07/24 07:03 36.6 C 70 16 164/88 H 100 Room Air Queries Orthopedic Spine Acute Posthemorrhagic Anemia: Yes Obesity: Yes Vertebral Fracture Secondary to Osteoporosis: No
--- NOTE | 2024-04-07 10:45 | Hospitalist Progress Note ---
Date of Service April 07, 2024 Assessment & Plan (1) Neurogenic claudication due to lumbar spinal stenosis: (2) S/P lumbar spine operation: Plan Unique Gibbs is a 68y/o F with PMHx significant for asthma, chronic back pain, GERD, fatty liver, history of colitis, history of left renal cell carcinoma s/p nephrectomy [2001], hyperlipidemia, history of cardiac catheterization, HTN and osteoporosis [facility]. Patient is now s/p hardware removal L4-S1, L2-L4 decompression and L2-S1 fusion with Dr. Suresh for treatment of neurogenic claudication due to lumbar spinal stenosis. Neurogenic Claudication 2/2 Lumbar Spinal Stenosis S/P Lumbar Spine Operation POD#2 s/p hardware removal L4-S1, L2-L4 decompression and L2-S1 fusion with Dr. Suresh. EBL: 200mL & Pre-Op Hgb: 14 Hgb stable at 11.5 today - will continue to trend; Monitor H/H for acute blood loss anemia and transfuse blood products PRN. Per ortho for pain control, wound care, anticoagulation and activities. Continue incentive spirometry and continue PT/OT; Recommend d/c to home with assistance from the pt's sister. WBC still slightly elevated this morning - likely 2/2 post-operative inflammation, will trend. Hyperlipidemia: Can continue [employer] aspirin and atorvastatin. HTN BP has remained stable; Pt on losartan 100mg HS [employer] - will continue. Pt takes 40mg Lasix PRN for LE swelling - on hold. Continue to assess volume status, IVF replacement has been stopped. Chronic Back Pain & Muscle Spasms Pt taking ropinirole 0.25mg HS [employer]; will continue. Pt has PRN 10mg Flexeril TID available for muscle spasms. Holding [employer] metaxalone and hydrocodone-acetaminophen as per ortho. Hypothyroidism: Can continue [employer] levothyroxine. DVT Prophylaxis: SCDs/TEDs - As per ortho team Code Status: FULL CODE PCP: Dr. Tony Barba ([facility]) Disposition: Patient admitted in Med/Surg, discharge planning per primary orthopedic team - ? potential discharge to home tomorrow. We will continue to follow the patient with you during their hospital stay. You can reach a member of the [facility] via [employer]. Patient seen in collaboration with Dr. Loyola. Please see addendum. I spent a total of 30 minutes coordinating, documenting, and providing care for this patient excluding time spent in the performance of separately billed services. This included personally reviewing all current laboratories and imaging studies, medical reconciliation, outpatient chart review and discussion with specialists. This chart was completed in part utilizing Speech Voice Recognition Software. Grammatical errors, random word insertions, pronoun errors, and incomplete sentences are an occasional consequence of this system due to software limitations, ambient noise, and hardware issues. Any formal questions or concerns about the content, text, or information contained within the body of this dictation should be directly addressed to the provider for clarification. Admission and Anticipated Discharge Date Admission Date: April 05, 2024 Supervising Physician Co-Signing Physician Notes Pt was seen and examined by myself, Ariana Loyola MD on the day of service. Care was coordinated with Ana Hansen PA-C. 68yoF s/p hardware removal L4-S1, L2-L4 decompression and L2-S1 fusion with ortho spine. Denies acute concerns. Monitor H/H PT/OT Dispo per primary team. Otherwise as above. I spent a total [id number] coordinating, documenting, and providing care for this patient excluding time spent in the performance of separately billed services Subjective Patient seen and examined at bedside in room E321-1. Patient was up and moving with therapy when I arrived to see her today. Mentions she was walking around her room this morning. Reports that her back pain is improving; However, she does endorse that the back pain worsens with therapy. Her Rivera catheter was removed yesterday; She denies any issues with urination, had a BM this morning. She does report that the muscle spasms are still ongoing. She has Flexeril ordered PRN by ortho - encouraged her to utilize it. Patient reports that her granddaughter is coming to eat lunch with her today. Review of Systems Review of Systems: At least ten systems reviewed and negative, except as noted in the HPI. Physical Exam Physical Exam: General: WD/WN, vitals as above, NAD, sitting in chair at bedside, very pleasant, conversing appropriately. A+Ox3, euthymic affect. HEENT: Normocephalic, atraumatic. Normal inspection, PERRL, conjunctivae normal, anicteric sclerae, oropharynx normal/moist. Respiratory: Normal respiratory effort, lungs clear to auscultation, no wheeze, rales, rhonchi. No accessory muscle use. Cardiovascular: Regular rate, rhythm, no murmur, normal peripheral pulses, no BLE edema. Vessels: No JVD. Abdomen/GI: Normal bowel sounds, soft, nontender, no hepatosplenomegaly. Extremities/Musculoskeletal: No cyanosis or clubbing, extremities motor strength appears grossly intact. Neurologic: EOMI, accommodation nl, no face palsy, no dysarthria, CN's II-XI not formally tested but appear grossly intact bilaterally. Skin: No rashes, normal color, warm/dry. BILL drain x 1 intact with good sanguine ous output, did not fully visualize surgical site. Results & Data Results & Data Vital Signs (Past 12 Hours) Vital Signs Temp Pulse Resp BP Pulse Ox O2 Del Method 04/07/24 07:03 36.6 C 70 16 164/88 H 100 Room Air Laboratory Results Short CBC 04/07/24 Range/Units 05:48 WBC 10.91 H (4.8-10.8) K/ul Hgb 11.5 L (12.0-16.0) g/dl Hct 33.8 L (37.0-47.0) % Plt Count 158 (130-400) K/uL BMP 04/07/24 05:48 Sodium 142 Potassium 4.6 Chloride 108 H Carbon Dioxide 29 BUN 15 Creatinine 0.78 Glucose 126 H Calcium 9.2 Diagnostic Findings Lumbar Spine X-Ray 04/05/24 07:00 FL lumbar spine 2-3V CLINICAL HISTORY: L2-S1 FUSION COMPARISON STUDY: None. FLUOROSCOPY TIME: 23 seconds FLUOROSCOPY IMAGES: 4 Ka,r: 18.2 mGy FINDINGS: There is 4 level posterior decompression and fusion within the lower lumbar spine. The exact levels are difficult to determine on these spot images but appear to represent the L3-S1 levels. The hardware appears intact. IMPRESSION: Fluoroscopic assistance as above. ACT 112: Negative or not required by law. Electronically signed by: Arthur Gloria M.D. 04/05/2024 1:56 PM Medications Administered Acetaminophen (Acetaminophen 500 Mg Tab) 1,000 mg PO Q8H PRN PRN Reason: MILD Pain Scale 1,2,3 & Pre PT Stop: 05/05/24 15:28 Last Admin: 04/07/24 06:14 Dose: 1,000 mg Documented By: Admin: 04/06/24 07:39 Dose: 1,000 mg Documented By: SYL Aspirin (Aspirin 81 Mg Ectab) 81 mg PO QAM [facility] Stop: 05/06/24 08:59 Last Admin: 04/07/24 07:44 Dose: 81 mg Documented By: Admin: 04/06/24 08:15 Dose: 81 mg Documented By: SYL Atorvastatin Calcium ([facility]orvastatin 20 Mg Tab) [facility] [place] Stop: 05/06/24 08:59 Last Admin: 04/07/24 07:45 Dose: 20 mg Documented By: Admin: 04/06/24 08:15 Dose: 20 mg Documented By: SYL Cyclobenzaprine HCl (Cyclobenzaprine Hcl 10 Mg Tab) 10 mg PO TID PRN PRN Reason: Spasms Stop: 05/05/24 15:47 Last Admin: 04/07/24 09:56 Dose: 10 mg Documented By: Admin: 04/06/24 20:48 Dose: 10 mg Documented By: Admin: 04/06/24 14:04 Dose: 10 mg Documented By: Admin: 04/05/24 16:03 Dose: 10 mg Documented By: ROLY Dexamethasone 6 mg/ Syringe 1.5 mls @ 1 mls/min IV DAILY JESSICA Stop: 04/08/24 09:02 Last Admin: 04/07/24 07:45 Dose: 1 mls/min Documented By: Admin: 04/06/24 08:16 Dose: 1 mls/min Documented By: SYL Levothyroxine Sodium (Levothyroxine Sodium 50 Mcg Tablet) 50 mcg PO DAILYBB [facility] Stop: 05/06/24 06:29 Last Admin: 04/07/24 05:33 Dose: 50 mcg Documented By: Admin: 04/06/24 05:16 Dose: 50 mcg Documented By: MICHELLE Losartan Potassium (Losartan Potassium 50 Mg Tab) 100 mg PO HS [facility] Stop: 05/05/24 20:59 Last Admin: 04/06/24 20:07 Dose: 100 mg Documented By: Admin: 04/05/24 19:52 Dose: 100 mg Documented By: MICHELLE Multivitamins (Multivitamin Tab) 1 tab PO QAM JESSICA Stop: 05/06/24 08:59 Last Admin: 04/07/24 07:45 Dose: 1 tab Documented By: Admin: 04/06/24 08:15 Dose: 1 tab Documented By: SYL Omeprazole (Pt Own Med - Omeprazole 20 Mg Capcr) 40 mg PO DAILY PRN PRN Reason: GERD Stop: 05/06/24 16:22 Last Admin: 04/06/24 16:49 Dose: 40 mg Documented By: SYL Oxycodone HCl (Oxycodone Hcl Ir 5 Mg Tab (Immediate Release)) 5 - 10 mg PO Q4H PRN PRN Reason: Pain & Pre PT Stop: 04/19/24 15:28 Last Admin: 04/07/24 01:02 Dose: 10 mg Documented By: Admin: 04/06/24 18:28 Dose: 5 mg Documented By: Admin: 04/06/24 11:29 Dose: 10 mg Documented By: Admin: 04/06/24 04:10 Dose: 10 mg Documented By: Admin: 04/05/24 23:51 Dose: 10 mg Documented By: Admin: 04/05/24 18:39 Dose: 10 mg Documented By: ROLY Ropinirole HCl (Ropinirole Hcl 0.25 Mg Tablet) 0.25 mg PO JESSICA Stop: 05/05/24 20:59 Last Admin: 04/06/24 20:07 Dose: 0.25 mg Documented By: Admin: 04/05/24 19:52 Dose: 0.25 mg Documented By: MICHELLE Senna/Docusate Sodium (Docusate Sodium/Senna 50/8.6mg Tab) 2 tab PO HS JESSICA Stop: 05/05/24 20:59 Last Admin: 04/06/24 20:07 Dose: 2 tab Documented By: Admin: 04/05/24 19:52 Dose: 2 tab Documented By: MICHELLE Tramadol HCl (Tramadol Hcl 50 Mg Tablet) 50 - 100 mg PO Q4H PRN PRN Reason: Moderate-Severe pain & Pre PT Stop: 05/05/24 15:28 Last Admin: 04/07/24 07:38 Dose: 50 mg Documented By: Admin: 04/06/24 20:06 Dose: 50 mg Documented By: Admin: 04/05/24 16:45 Dose: 50 mg Documented By: KS Discontinued Medications Bupivacaine HCl/Epinephrine Bitart (Bupivacaine/Epinephrine 0.25% 1:200,000 30 Ml Vial) Confirm Administered Dose 30 ml .ROUTE .STK-MED ONE Stop: 04/05/24 11:05 Last Admin: 04/05/24 12:03 Dose: 25 ml Documented By: GMB Cefazolin Sodium (Cefazolin 330 Mg/Ml 1 Gm Vial) Confirm Administered Dose 990 mg .ROUTE .STK-MED ONE Stop: 04/05/24 11:05 Last Admin: 04/05/24 12:03 Dose: 990 mg Documented By: GMB Fentanyl Citrate (Fentanyl Citrate Pf 100 Mcg/2 Ml Vial) 25 mcg IV Q5M PRN PRN Reason: PACU Use Only-Pain Stop: 04/05/24 17:28 Last Admin: 04/05/24 14:17 Dose: 25 mcg Documented By: Admin: 04/05/24 14:12 Dose: 25 mcg Documented By: Admin: 04/05/24 14:07 Dose: 25 mcg Documented By: Admin: 04/05/24 14:02 Dose: 25 mcg Documented By: WT Gabapentin (Gabapentin 300 Mg Cap) 300 mg PO PREOP JESSICA Stop: 04/05/24 18:00 Last Admin: 04/05/24 08:03 Dose: 300 mg Documented By: JVU Hydromorphone HCl (Hydromorphone Inj 2 Mg/Ml Syr/Vial) 0.5 mg IV Q5M PRN PRN Reason: PACU Use Only-Pain Stop: 04/05/24 22:39 Last Admin: 04/05/24 14:45 Dose: 0.5 mg Documented By: Admin: 04/05/24 14:40 Dose: 0.5 mg Documented By: WT Hydromorphone HCl (Hydromorphone Inj 1 Mg/Ml Syringe) Confirm Administered Dose 1 mg .ROUTE .STK-MED ONE Stop: 04/05/24 14:42 Last Admin: 04/05/24 14:43 Dose: Not Given Documented By: WT Lactated Ringer's (Lr) 1,000 mls @ 15 mls/hr IV .Q24H JESSICA Stop: 04/06/24 05:59 Last Infusion: 04/05/24 11:22 Dose: Infused Documented By: Admin: 04/05/24 07:44 Dose: 15 mls/hr Documented By: PREET Lactated Ringer's (Lr) 1,000 mls @ 60 mls/hr IV .[id number] JESSICA Stop: 04/05/24 22:39 Last Admin: 04/05/24 08:02 Dose: Not Given Documented By: PREET Vancomycin HCl 1,750 mg/ (Sodium Chloride) 535 mls @ 200 mls/hr IV PREOP JESSICA Stop: 04/05/24 18:00 Last Infusion: 04/05/24 10:37 Dose: Infused Documented By: Admin: 04/05/24 07:44 Dose: 200 mls/hr Documented By: PREET Lactated Ringer's (Lr) 1,000 mls @ 150 mls/hr IV .[id number] JESSICA Stop: 05/05/24 15:28 Last Infusion: 04/06/24 02:54 Dose: Infused Documented By: Admin: 04/05/24 19:58 Dose: 150 mls/hr Documented By: Infusion: 04/05/24 19:58 Dose: Infused Documented By: Admin: 04/05/24 16:05 Dose: 150 mls/hr Documented By: ROLY Clindamycin Phosphate (Cleocin/D5w) 600 mg in 50 mls @ 100 mls/hr IV Q8H [facility] Stop: 04/06/24 00:29 Last Infusion: 04/05/24 23:52 Dose: Infused Documented By: Admin: 04/05/24 23:21 Dose: 100 mls/hr Documented By: TKAriana Infusion: 04/05/24 17:13 Dose: Infused Documented By: Admin: 04/05/24 16:39 Dose: 100 mls/hr Documented By: ROLY Miscellaneous ( Floseal Hemostatic Matrix 10ml) 20 ml TOP ONCE ONE Stop: 04/05/24 12:04 Last Admin: 04/05/24 13:12 Dose: 20 ml Documented By: YIMI Miscellaneous (Omeprazole 40 Mg - Order Awaiting Action) 1 each N/A QS [facility] Stop: 05/06/24 00:00 Last Admin: 04/06/24 18:29 Dose: Not Given Documented By: [facility] Admin: 04/06/24 08:18 Dose: Not Given Documented By: [facility] Admin: 04/05/24 23:36 Dose: Not Given Documented By: MICHELLE Polyethylene Glycol (Polyethylene (Miralax) 17 Gm Pack) 17 gm PO Q6 JESSICA Stop: 05/06/24 05:59 Last Admin: 04/07/24 05:33 Dose: 17 gm Documented By: Admin: 04/07/24 00:10 Dose: 17 gm Documented By: Admin: 04/06/24 18:15 Dose: 17 gm Documented By: [facility] Admin: 04/06/24 12:55 Dose: 17 gm Documented By: [facility] Admin: 04/06/24 05:16 Dose: 17 gm Documented By: MICHELLE
[2024-04-07] MEDS: FUROSEMIDE 40 MG TAB PO PRN (14:15)
[2024-04-08 06:37] LABS: Hemoglobin 11.3 g/dl (12.0-16.0); Mean Corpuscular Hemoglobin 32.7 pg (25.0-34.0); Mean Corpuscular Hgb Conc 34.2 g/dL (32.0-36.0); Mean Corpuscular Volume 95.4 fL (80.0-100.0); Mean Platelet Volume 12.1 fL (9.4-12.4); Platelet Count 180 K/uL (130-400); RDW Coefficient of Variation 11.8 % (11.5-14.5); RDW Standard Deviation 40.6 fL (36.4-46.3); Red Blood Count 3.46 M/uL (4.20-5.40); White Blood Count 11.32 K/ul (4.8-10.8)
[2024-04-08 06:58] LABS: BUN Creatinine Ratio 25.3 (10-20); Calcium 9.2 mg/dl (8.6-10.3); Creatinine Clr Calc Pharmacy 81.8 ml/min; Est GFR (African American) 79.3 ml/min; Est GFR (Non-African American) 68.5 ml/min; Magnesium 1.8 mg/dl (1.7-2.4); Potassium 4.1 mmol/L (3.5-5.1)
--- NOTE | 2024-04-08 12:16 | Orthopedic Progress Note ---
Date of Service April 08, 2024 Assessment & Plan (1) Neurogenic claudication due to lumbar spinal stenosis: Plan: At this time we will continue physical therapy monitor BILL output anticipate discharge home tomorrow. Admission and Anticipated Discharge Date Admission Date: April 05, 2024 Subjective Back pain is controlled leg symptoms are improving Physical Exam Physical Exam: Patient is in the chair at the bedside. She is comfortable. Discussed when to testing. Results & Data Vital Signs (Past 12 Hours) Vital Signs Temp Pulse Resp BP Pulse Ox O2 Del Method 04/08/24 07:44 36.6 C 75 16 148/84 H 99 Room Air Queries Orthopedic Spine Acute Posthemorrhagic Anemia: Yes Obesity: Yes Vertebral Fracture Secondary to Osteoporosis: No
--- NOTE | 2024-04-08 13:34 | Hospitalist Progress Note ---
Date of Service April 08, 2024 Assessment & Plan (1) Neurogenic claudication due to lumbar spinal stenosis: (2) S/P lumbar spine operation: Plan Unique Gibbs is a 68y/o F with PMHx significant for asthma, chronic back pain, GERD, fatty liver, history of colitis, history of left renal cell carcinoma s/p nephrectomy [2002], hyperlipidemia, history of cardiac catheterization, HTN and osteoporosis [facility]. Patient is now s/p hardware removal L4-S1, L2-L4 decompression and L2-S1 fusion with Dr. Suresh for treatment of neurogenic claudication due to lumbar spinal stenosis. Neurogenic Claudication 2/2 Lumbar Spinal Stenosis S/P Lumbar Spine Operation POD#3 s/p hardware removal L4-S1, L2-L4 decompression and L2-S1 fusion with Dr. Suresh. EBL: 200mL & Pre-Op Hgb: 14 Hgb stable Monitor H/H Per ortho for pain control, wound care, anticoagulation and activities. Continue incentive spirometry and continue PT/OT Hyperlipidemia: continue [employer] aspirin and atorvastatin. HTN BP has remained stable; Pt on losartan 100mg HS [employer] - will continue. Pt takes 40mg Lasix PRN for LE swelling Continue to assess volume status Chronic Back Pain & Muscle Spasms Pt taking ropinirole 0.25mg HS [employer]; will continue. Pt has PRN 10mg Flexeril TID available for muscle spasms. Holding [employer] metaxalone and hydrocodone-acetaminophen as per ortho. Hypothyroidism: continue [employer] levothyroxine. DVT Prophylaxis: As per ortho team Code Status: FULL CODE PCP: Dr. Tony Barba ([facility]) Disposition: Patient admitted in Med/Surg, discharge planning per primary orthopedic team - ? potential discharge to home tomorrow. We will continue to follow the patient with you during their hospital stay. You can [facility] via [employer]. Admission and Anticipated Discharge Date Admission Date: April 05, 2024 Subjective pt was seen sitting in chair at bedside. Denied acute concerns. back pain controlled. Review of Systems Review of Systems: All systems reviewed & are unremarkable except as noted in Subjective Physical Exam Physical Exam: General: Alert, oriented. No acute distress Skin: No noted rashes or bruises Psych: Appropriate mood and affect Neuro: difficulty with movements in the chair HEENT: NC/AT CV: RRR Resp: Breath sounds clear bilaterally, no increased effort of breathing. Abdomen: Soft Results & Data Results & Data Vital Signs (Past 12 Hours) Vital Signs Temp Pulse Resp BP Pulse Ox O2 Del Method 04/08/24 07:44 36.6 C 75 16 148/84 H 99 Room Air
--- NOTE | 2024-04-09 07:41 | Hospitalist Progress Note ---
Date of Service April 09, 2024 Assessment & Plan (1) S/P lumbar spine operation: (2) Neurogenic claudication due to lumbar spinal stenosis: Plan Unique Gibbs is a 68y/o F with PMHx significant for asthma, chronic back pain, GERD, fatty liver, history of colitis, history of left renal cell carcinoma s/p nephrectomy [2001], hyperlipidemia, history of cardiac catheterization, HTN and osteoporosis [facility]. Patient is now s/p hardware removal L4-S1, L2-L4 decompression and L2-S1 fusion with Dr. Suresh for treatment of neurogenic claudication due to lumbar spinal stenosis. Neurogenic Claudication 2/2 Lumbar Spinal Stenosis S/P Lumbar Spine Operation POD#4 s/p hardware removal L4-S1, L2-L4 decompression and L2-S1 fusion with Dr. Suresh. EBL: 200mL & Pre-Op Hgb: 14 Hgb stable at 12.2 on discharge Per ortho for pain control, wound care, anticoagulation and activities. Continue incentive spirometry and continue PT/OT Hyperlipidemia: continue [employer] aspirin and atorvastatin. HTN BP has remained stable; Pt on losartan 100mg HS [employer] - continue. Pt takes 40mg Lasix PRN for LE swelling Continue to assess volume status with lasix as needed Chronic Back Pain & Muscle Spasms Pt taking ropinirole 0.25mg HS [employer]; will continue. Pt has PRN 10mg Flexeril TID available for muscle spasms. Holding [employer] metaxalone and hydrocodone-acetaminophen as per ortho. Resume on discharge Hypothyroidism: continue [employer] levothyroxine. DVT Prophylaxis: As per ortho team Code Status: FULL CODE PCP: Dr. Tony Barba ([facility]) Disposition: Patient discharged per primary team Admission and Anticipated Discharge Date Admission Date: April 05, 2024 Subjective pt was seen sitting in chair at bedside. Denied acute concerns. back pain controlled. having bowel movements Review of Systems Review of Systems: All systems reviewed & are unremarkable except as noted in Subjective Physical Exam Physical Exam: General: Alert, oriented. No acute distress Skin: No noted rashes or bruises Psych: Appropriate mood and affect Neuro: difficulty with movements in the chair HEENT: NC/AT CV: RRR Resp: Breath sounds clear bilaterally, no increased effort of breathing. Abdomen: Soft Extremitites: noted swelling, compression stockings on Results & Data Results & Data Vital Signs (Past 12 Hours) Vital Signs Temp Pulse Resp BP Pulse Ox O2 Del Method 04/08/24 20:49 36.7 C 73 16 138/86 93 Room Air
--- NOTE | 2024-04-09 08:14 | Discharge Summary ---
Date of Service April 09, 2024 Admission HPI Per Admitting Provider 68 yo with back and leg pain here for surgical intervention. Principal Diagnosis Lumbar spinal stenosis with neurogenic claudication Discharge Data Allergies Allergy/AdvReac Type Severity Reaction Status Date / Time esomeprazole Allergy Unknown Hives Verified 04/05/24 07:35 pantoprazole Allergy Unknown Hives Verified 04/05/24 07:35 Penicillins Allergy Unknown Hives Verified 04/05/24 07:35 propoxyphene Allergy Unknown N/V Verified 04/05/24 07:35 (Darvocet), "OK with tylenol" simvastatin Allergy Unknown Mylagias Verified 04/05/24 07:35 Sulfa (Sulfonamide Allergy Unknown Hives Verified 04/05/24 07:35 Antibiotics) atenolol AdvReac Unknown Dizziness, Verified 04/05/24 07:35 felt "loopy" clarithromycin AdvReac Unknown Yeast Verified 04/05/24 07:35 infection (mouth) cortisone AdvReac Unknown Elevated BP Verified 04/05/24 07:35 prednisone AdvReac Unknown Elevated BP Verified 04/05/24 07:35 Consultations 04/05/24 15:29 Consult Hospitalist Routine Procedures Performed Operation Date: 04/05/24 09:55 Actual Procedures p L2-L4 Decompression, L2-S1 Fusion, Spinal Cord Monitoring(Not Applicable) - Chris Suresh DO s L4-S1 Hardware Removal(Not Applicable) - Chris Suresh DO Ordered Studies 04/05/24 07:00 [place] lumbar spine 2-3V Routine Hospital Course (1) Neurogenic claudication due to lumbar spinal stenosis: Patient 1 lumbar decompression fusion tolerated so stayed orthopedic for postoperative. Postop patient progressed appropriately. Marked improvement ability to ambulate. Leg pain improved. Extra strength testing. BILL drain decreasing. Simply discharged home. Discharge orders instructions from the chart for further review. Total Time Total Time Spent Total Time Spent (In Minutes): 20 minutes Discharge Plan Discharge Items Patient Disposition: Home - Self-Care Reason For Visit: Lumbar Stenosis with Neurogenic Claudication, Lumb Discharge Diagnosis: Lumbar spinal stenosis with radiculopathy Activity: As commented below Non-emergency contact: Primary Care Provider Call non-emergency contact if: you have any medication questions Follow-up/Referrals: Tony Barba M.D. [Primary Care Provider] - Diet: Regular Addtl Attending Provider Instructions: ACTIVITY RECOMMENDATIONS: SELF CARE INSTRUCTIONS AFTER THORACIC/LUMBAR FUSIONS 1. You may walk to your tolerance. It is good exercise for your legs and back. Expect some back and intermittent leg aches and pains. 2. You may perform "counter-top" level activities (make a sandwich, po with a project, etc.). 3. No bending or lifting of more than 10 pounds or back twisting of any nature (roll like a log when turning in bed). 4. You may ride in a car for 20-30 minutes at a time. No driving until after your first visit with your doctor. 5. Frequent changes of position and restricting sitting to 30 minutes at a time will help limit the amount of back spasms and stiffness you may experience. 6. You may discontinue the use of ambulatory aids (cane, crutches, etc.) once your strength and confidence allow. 7. You may binder coverstitch the shower and let water strike your incision when you arrive home at least once daily. Do not take a tub bath, sit in a hot tub or go into a swimming pool until after your first recheck in the office. SPECIAL CARE INSTRUCTIONS: VERY IMPORTANT TO READ AND REVIEW A. Your surgical incision has been closed with a cosmetic suture under the skin that will dissolve in about 6 weeks. In 14 days, you can use a pair of clean scissors and cut the suture that is left outside of the skin at the ends of your incision. 1. The small skin tapes can be removed 7 days after surgery if they have not fallen off by that point. 2. You may keep the wound open to air as much as possible to promote healing after post-op day number 5 unless told otherwise by your doctor. 3. If you think the wound looks like it is becoming infected (redness or worsening drainage) and/or you are experiencing fever, chill or worsening back pain and muscle spasms, contact the office so that we may evaluate you as soon as possible. B. Complications are uncommon, but please contact us if you have any signs or symptoms of: 1. wound infection (fever higher than 102.5 degrees F, redness, separation of wound, drainage, or increasing pain from the incision) 2. blood clots in legs (pain, swelling, redness and warmth in legs) 3. urinary tract infection (fever higher than 102.5 degrees F, burning upon urination or increased frequency of urination) 4. nerve problems (inability to walk on your toes or heels, numbness, loss of bowel or bladder control) 5. any other symptoms that concern you C. Please call the office at if you have any concerns or questions about your operation or recovery. D. No smoking! Smoking drastically decreases the chance of a solid fusion. E. Do not take any anti-inflammatory medications (Indocin, Advil, Motrin, Aspirin, Naprosyn, etc.) as these may inhibit the chance of a solid fusion. Tylenol is okay to take for pain. MANAGING PAIN AFTER SPINAL SURGERY 1. Narcotic medication is intended for short-term use and will be provided for surgical pain. Surgical pain usually lasts for a period of 4-6 weeks. Narcotic medication includes Percocet, Vicodin, Darvocet, Tylenol #3 or Lortab. 2. Longer-term pain is more appropriately treated with non-narcotic medication such as Tylenol ES. 3. Muscle spasm is not appropriately treated with narcotics. Muscle relaxers such as Soma, Flexeril or Skelaxin can be used along with Tylenol ES. 4. Remember that we all live with some "aches and pains". This is not unusual or uncommon after an injury or as we get older. a. Back pain is expected and may include muscle spasms for 4 to 6 weeks after surgery. The pain should gradually improve. If the pain worsens for no apparent reason, please contact the office. b. Intermittent leg pain may also be experienced and should not be concerned about unless it worsens for no apparent reason. If so, please contact the office. 5. We will provide appropriate medication within the normal guidelines of their prescribed use. We will also be very cautious and aware of potential abuse and extended duration of patients' medication needs. a. Pain medications are for your comfort and to assist with sleep and rest so that the tissue can heal. They are not provided in order to return to normal activity and should not be used through the day. To do so or worsening pain at night can result from ongoing tissue damage and development of tolerance to the prescribed medicine. 6. Please allow 2-3 days to process refills. Prescriptions will not be mailed but must be picked up at the office. FOLLOW UP VISIT: Keep your scheduled follow-up appointment. Any questions, please call the office at . Pending Studies at Discharge: No Stand-Alone Forms: My [facility], Smoking Cessation Medications and DC Order Prescriptions: New tramadol 50 mg tablet 50 mg PO Q6H PRN (Reason: pain, moderate) Qty: 30 0RF oxycodone 5 mg tablet 5 mg PO Q6H PRN (Reason: pain) Qty: 30 0RF Continued multivitamin Tablet 1 tab PO QAM atorvastatin 20 mg Tablet 20 mg PO QAM omeprazole 40 mg Capsule,Delayed Release(Dr/Ec) 40 mg PO QAM PRN (Reason: GERD) ropinirole 0.25 mg Tablet 0.25 mg PO HS Rx Instructions: administer 1-3 hours before bedtime levothyroxine 50 mcg Tablet 50 mcg PO QAM hydrocodone-acetaminophen 7.5-325 mg Tablet 1 tab PO TID PRN (Reason: Pain) Patient Comments: usually takes 3x daily furosemide 20 mg Tablet 40 mg PO QAM PRN (Reason: swelling) losartan [Cozaar] 100 mg Tablet 100 mg PO HS metaxalone 800 mg Tablet 800 mg PO TID PRN (Reason: muscle spasms) Patient Comments: usually takes 1-2 each day, usually afternoon and evening potassium chloride 20 mEq Tablet Extended Release 20 - 40 meq PO DAILY PRN (Reason: taken when taking furosemide) aspirin 81 mg Capsule 81 mg PO QAM Discharge Orders: Discharge Order (Routine); Ordered 04/09/24 Ordered By: Chris Suresh Admission Data Admit Date/Time: 04/05/24 13:34 Attending Provider: Chris Suresh Admit Provider: Chris Suresh Primary Care Provider: Tony Barba Other Providers: Sade Panchal
[2024-04-09 08:54] LABS: Hematocrit (blood only) 36.3 % (37.0-47.0); Hemoglobin 12.2 g/dl (12.0-16.0); Mean Corpuscular Hemoglobin 32.4 pg (25.0-34.0); Mean Corpuscular Hgb Conc 33.6 g/dL (32.0-36.0); Mean Corpuscular Volume 96.3 fL (80.0-100.0); Mean Platelet Volume 11.8 fL (9.4-12.4); Platelet Count 190 K/uL (130-400); RDW Coefficient of Variation 11.9 % (11.5-14.5); RDW Standard Deviation 41.6 fL (36.4-46.3); Red Blood Count 3.77 M/uL (4.20-5.40)
[2024-04-09 09:11] LABS: BUN Creatinine Ratio 25.8 (10-20); Calcium 9.5 mg/dl (8.6-10.3); Est GFR (African American) 77.2 ml/min; Est GFR (Non-African American) 66.6 ml/min; Potassium 4.1 mmol/L (3.5-5.1)
== END 2024-04-09 14:25 | disposition home or self-care (01) | DRG 454 ==
LOC: ASU 07:02 → 3E 13:34

== ENCOUNTER 2024-12-14 08:11 | Inpatient (IN) ==
--- NOTE | 2024-11-15 11:30 | PAT Medication Instructions ---
Medication Instructions Date of Service November 15, 2024 Home Medications Medication Instructions Recorded tramadol 50 mg tablet 50 mg PO Q6H PRN pain, moderate 04/06/24 #30 tabs Medication List: aspirin 81 mg capsule 81 mg PO QAM atorvastatin 20 mg tablet 20 mg PO QAM furosemide 20 mg tablet 40 mg PO UD PRN swelling levothyroxine 50 mcg tablet 50 mcg PO QAM losartan 100 mg tablet (Cozaar) 100 mg PO HS multivitamin 1 tab PO QAM omeprazole 40 mg capsule,delayed release 40 mg PO QAM GERD potassium chloride 20 mEq tablet,extended release 20 - 40 meq PO UD PRN taken when taking furosemide ropinirole 0.25 mg tablet 0.25 mg PO HS tramadol 50 mg tablet 50 mg PO Q6H PRN pain, moderate alprazolam 0.25 mg tablet 0.25 mg PO UD PRN Anxiety MEDICATION INSTRUCTIONS: ASK your prescriber and surgeon aspirin 81 mg capsule 81 mg PO QAM DO NOT take the morning of surgery potassium chloride 20 mEq tablet,extended release 20 - 40 meq PO UD PRN taken when taking furosemide multivitamin 1 tab PO QAM furosemide 20 mg tablet 40 mg PO UD PRN swelling Take morning of surgery With a small sip of water, OTHERWISE NOTHING TO EAT OR DRINK AFTER MIDNIGHT: omeprazole 40 mg capsule,delayed release 40 mg PO QAM GERD atorvastatin 20 mg tablet 20 mg PO QAM levothyroxine 50 mcg tablet 50 mcg PO QAM tramadol 50 mg tablet 50 mg PO Q6H PRN pain, moderate alprazolam 0.25 mg tablet 0.25 mg PO UD PRN Anxiety Take evening before surgery losartan 100 mg tablet (Cozaar) 100 mg PO HS ropinirole 0.25 mg tablet 0.25 mg PO HS tramadol 50 mg tablet 50 mg PO Q6H PRN pain, moderate alprazolam 0.25 mg tablet 0.25 mg PO UD PRN Anxiety Other Notes If you have any questions please call us at [phone] or [phone] or [phone] or [phone]
--- NOTE | 2024-11-22 12:48 | Anesthesiology Consultation ---
Date of Service November 22, 2024 Assessment & Plan (1) Encounter for pre-operative examination: - awaiting surgeon ordered medical clearance, Dr. Grace Hurtado [facility]. Chart Review Chart Review: Pending: Refer to Additional Notes / Consult section and Patient seen in Pre Admission Testing Teaching & Discussion Pre-Anesthesia Teaching/Discussion Notes: Instructed NPO after midnight before surgery, except medications with 15 cc of water. Medication instructions provided according to the PAT guidelines. History Surgery Operation Date: 12/14/24 10:35 Proposed Procedures p T12-L2 Decompression and Fusion Connect to Previous Hardware Spinal Cord Monitoring - Chris Suresh DO Height/Weight Height: 5 ft 7 in Weight: 111.5 kg Allergies Allergy/AdvReac Type Severity Reaction Status Date / Time esomeprazole Allergy Unknown Hives Verified 11/15/24 09:48 pantoprazole Allergy Unknown Hives Verified 11/15/24 09:48 Penicillins Allergy Unknown Hives Verified 11/15/24 09:48 Sulfa (Sulfonamide Allergy Unknown Hives Verified 11/15/24 09:48 Antibiotics) atenolol AdvReac Unknown Dizziness, Verified 11/15/24 09:48 felt "loopy" clarithromycin AdvReac Unknown Yeast Verified 11/15/24 09:48 infection (mouth) cortisone AdvReac Unknown Elevated BP Verified 11/15/24 09:48 prednisone AdvReac Unknown Elevated BP Verified 11/15/24 09:48 propoxyphene AdvReac Unknown N/V Verified 11/15/24 09:48 (Darvocet), "OK with tylenol" simvastatin AdvReac Unknown Mylagias Verified 11/15/24 09:48 Medications Home Medications Medication Instructions Recorded Confirmed Last Taken aspirin 81 mg capsule 81 mg PO QAM 03/03/24 11/15/24 04/05/24 05:30 atorvastatin 20 mg tablet 20 mg PO QAM 03/03/24 11/15/24 04/05/24 05:30 furosemide 20 mg tablet 40 mg PO UD PRN swelling 03/03/24 11/15/24 03/29/24 levothyroxine 50 mcg tablet 50 mcg PO QAM 03/03/24 11/15/24 04/05/24 05:30 losartan 100 mg tablet (Cozaar) 100 mg PO HS 03/03/24 11/15/24 04/04/24 22:00 multivitamin 1 tab PO QAM 03/03/24 11/15/24 04/04/24 07:00 omeprazole 40 mg capsule,delayed 40 mg PO QAM GERD 03/03/24 11/15/24 04/05/24 05:30 release potassium chloride 20 mEq 20 - 40 meq PO UD PRN taken when 03/03/24 11/15/24 04/04/24 tablet,extended release taking furosemide ropinirole 0.25 mg tablet 0.25 mg PO HS 03/03/24 11/15/24 04/04/24 22:00 tramadol 50 mg tablet 50 mg PO Q6H PRN pain, moderate 04/06/24 11/15/24 Unknown #30 tabs alprazolam 0.25 mg tablet 0.25 mg PO UD PRN Anxiety 11/15/24 11/15/24 Unknown Past Medical History Medical History (Updated 11/22/24 @ 13:14 by Emilie Balbuena PA-C) Anxiety and depression GERD (gastroesophageal reflux disease) controlled, stable per pt History of asthma No current issues or inhalers History of COVID-19 (~2020) 2019 + 2020: symptoms resolved History of influenza (~10/2024) A. Testing around oct 22 2024 [facility]. Resolved. no current s/s. 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 Exercise / Class Metabolic Activity II 4-5 Yardwork/Stairs/Walk up hill (denies chest discomfort or shortness of breath with one flight of stairs) Past Family History Family History Brother Family history of reaction to anesthesia n/v, took awhile to come out of it. Past Surgical History Surgical History History of cardiac cath Prior to 2009- no stents History of esophagogastroduodenoscopy (EGD) History of mandibular surgery R/t left jaw fracture (surgery to correct, implant present) History of nephrectomy, left 2001 History of total left knee replacement History of total right knee replacement Hx of appendectomy Hx of cholecystectomy Hx of colonoscopy Hx of fusion of cervical spine 2003 - full rom. Hx of hysterectomy left ovary remains Hx of left knee surgery to remove cartilege as a child Hx of lumbosacral spine surgery x4 including hx fusion. March 2024 most recent back sx. Hx of removal of cyst right calf x2 Hx of tonsillectomy Hx of tooth extraction all upper teeth Nausea and vomiting after administration of anesthetic agent [place] teeth extracted Past Anesthesia History No Hx of Anesthesia Complications and Other (Brother: "Stopped breathing" during surgery, was told he was given "too much medicine" > No similar issues with other surgeries/anesthesia.) History of PONV History of PONV (denies needing scop patch) and Hx of Motion Sickness Social History Smoking Status: Former smoker Smoking cigarettes per day: 8 mon ago/advised Do You Dip or Chew Tobacco: No Hx Alcohol Use: Yes Alcohol type: wine alcohol intake frequency: a few times a month Hx Substance Use: No substance use type: does not use Review of Systems Snoring, denies witnessed apneas. Patient denies chest pain, shortness of breath, dyspnea on exertion, fever, chills, cough, wheezing, or palpitations. Physical Exam Vital Signs Vitals BP 121/70 P 79 TEMP 98.1 SP02 98% on RA RESP 18 Physical Patient resting comfortably in chair in no acute distress, alert and oriented, responding appropriately throughout visit Full cervical extension range of motion without pain TMD 3 finger breadths Mallampati Score 2 Dentition: upper plate and several caps; denies chipped or loose teeth, crowns, implants or bridges Lungs: normal respiratory effort. Good air movement, clear throughout to auscultation, no adventitious breath sounds Cardiac: regular rate and rhythm, no murmurs noted Carotid arteries: negative bruit bilat Lab Results Anesthesia Preop Results Results Anesthesia Widget: WBC 6.19 K/ul (4.8-10.8) 11/22/24 Hgb 13.1 g/dl (12.0-16.0) 11/22/24 Hct 38.5 % (37.0-47.0) 11/22/24 Plt 172 K/uL (130-400) 11/22/24 Na 143 mmol/L (136-145) 11/22/24 K 4.4 mmol/L (3.5-5.1) 11/22/24 Cl 110 mmol/L (98-107) H 11/22/24 CO2 29 mmol/L (21-32) 11/22/24 BUN 18 mg/dl (6-23) 11/22/24 Creat 0.80 mg/dl (0.6-1.2) 11/22/24 Glucose Level 106 mg/dl (70-99(Fasting)) H 11/22/24 PT 11.0 Seconds (9.0-12.0) 11/22/24 PTT 27 Seconds (21-31) 11/22/24 INR 1.0 (0.9-1.1) 11/22/24 Urine Color Dark Yellow 11/22/24 Urine Appearance Clear (Clear) 11/22/24 Urine pH 5.5 (4.5-7.5) 11/22/24 Urine Specific [place] 1.034 (1.000-1.030) H 11/22/24 Urine Protein Trace (Negative) H 11/22/24 Urine Glucose (UA) Negative (Negative) 11/22/24 Urine Ketones Trace (Negative) H 11/22/24 Urine Blood Negative (Negative) 11/22/24 Urine Nitrite Negative (Negative) 11/22/24 Urine Bilirubin Negative (Negative) 11/22/24 Urine Urobilinogen Negative (Negative) 11/22/24 Urine Leukocyte Esterase Negative (Negative) 11/22/24 Urine WBC (Auto) 0-5 /hpf (0-5) 11/22/24 Urine RBC (Auto) 0-2 /hpf (0-2) 11/22/24 Urine Hyaline Casts (Auto) 0-2 /lpf (0-2) 11/22/24 Urine Epithelial Cells (Auto) 6-10 /hpf (0-2) H 11/22/24 Urine Bacteria (Auto) 1+ (None Seen) H 11/22/24 Blood Type B Positive 11/22/24 Antibody Screen NEGATIVE 11/22/24 Testing Laboratory Results Surgeon's office made aware of abnormal UA. Electrocardiogram Date: 03/11/24 NSR, rate 68 bpm Chest X-Ray Date: 03/11/24 No acute chest disease.
[2024-12-14] MEDS: LR 60ML/HR IV SCH (09:13)
[2024-12-14] MEDS: VANCOMYCIN HCL 1,750 MG in SODIUM CHLORIDE 0.9% 500 ML IV SCH (09:13)
[2024-12-14] MEDS: LACTATED RINGER'S 1,000 ML IV SCH (09:13)
[2024-12-14] MEDS: CeleBREX 200 MG CAP PO SCH (09:35)
[2024-12-14] MEDS: GABAPENTIN 300 MG CAP PO SCH (09:35)
[2024-12-14] MEDS ORDERED: ONDANSETRON INJ 2 MG/ML 2 ML VIAL ONE (11:16)
[2024-12-14] MEDS ORDERED: PROPOFOL IV EMULSION 10 MG/ML 20 ML VIAL IV ONE (11:16)
[2024-12-14] MEDS ORDERED: LIDOCAINE 2% 2 ML VIAL/AMP(20MG/ML) INFIL ONE (11:16)
[2024-12-14] MEDS ORDERED: DEXAMETHASONE SOD INJ 4 MG/ML VIAL ONE (11:16)
[2024-12-14] MEDS ORDERED: fentaNYL citrate PF 100 MCG/2 ML VIAL ONE (11:16)
[2024-12-14] MEDS ORDERED: ROCURONIUM BROMIDE 10 MG/ML 5 ML VIAL IV ONE (11:16)
[2024-12-14] MEDS ORDERED: MIDAZOLAM HCL 1 MG/ML 2ML VIAL ONE (11:16)
--- NOTE | 2024-12-14 12:00 | History & Physical Bridge Note ---
Date of Service December 14, 2024 History & Physical Bridge Note I have examined the patient, reviewed the History & Physical and in the interval since the performance of the History & Physical I have noted the following changes of clinical significance: no changes noted
[2024-12-14] MEDS ORDERED: PROMETHAZINE HCL 6.25 MG in SODIUM CHLORIDE 0.9% 50 ML IV PRN (12:06)
[2024-12-14] MEDS ORDERED: ONDANSETRON INJ 2 MG/ML 2 ML VIAL IV PRN ×2 (12:06→15:56)
[2024-12-14] MEDS ORDERED: LABETALOL HCL IV 5 MG/ML 20ML IV PRN (12:06)
[2024-12-14] MEDS ORDERED: ATROPINE SULFATE 0.1 MG/ML 10ML SYR IV PRN (12:06)
--- NOTE | 2024-12-14 12:13 | History & Physical Report ---
Date of Service December 14, 2024 Assessment & Plan (1) Neurogenic claudication due to lumbar spinal stenosis: Plan: T12-L2 decompression and fusion, connected previous hardware History of Present Illness Chief Complaint: Chronic back and leg pain Primary Care Provider: Tony Barba This is a 69-year-old female with chronic persistent back and leg pain is failed extensive course of nonoperative care and here for surgical invention. Allergies Allergy/AdvReac Type Severity Reaction Status Date / Time esomeprazole Allergy Unknown Hives Verified 12/14/24 09:03 pantoprazole Allergy Unknown Hives Verified 12/14/24 09:03 Penicillins Allergy Unknown Hives Verified 12/14/24 09:03 Sulfa (Sulfonamide Allergy Unknown Hives Verified 12/14/24 09:03 Antibiotics) atenolol AdvReac Unknown Dizziness, Verified 12/14/24 09:03 felt "loopy" clarithromycin AdvReac Unknown Yeast Verified 12/14/24 09:03 infection (mouth) cortisone AdvReac Unknown Elevated BP Verified 12/14/24 09:03 prednisone AdvReac Unknown Elevated BP Verified 12/14/24 09:03 propoxyphene AdvReac Unknown N/V Verified 12/14/24 09:03 (Darvocet), "OK with tylenol" simvastatin AdvReac Unknown Mylagias Verified 12/14/24 09:03 Home Medications Medication Instructions Recorded Confirmed Type aspirin 81 mg capsule 81 mg PO QAM 03/03/24 12/14/24 History atorvastatin 20 mg tablet 20 mg PO QAM 03/03/24 12/14/24 History furosemide 20 mg tablet 40 mg PO UD PRN swelling 03/03/24 12/14/24 History levothyroxine 50 mcg tablet 50 mcg PO QAM 03/03/24 12/14/24 History losartan 100 mg tablet (Cozaar) 100 mg PO HS 03/03/24 12/14/24 History multivitamin 1 tab PO QAM 03/03/24 12/14/24 History omeprazole 40 mg capsule,delayed 40 mg PO QAM GERD 03/03/24 12/14/24 History release potassium chloride 20 mEq 20 - 40 meq PO UD PRN taken when 03/03/24 12/14/24 History tablet,extended release taking furosemide ropinirole 0.25 mg tablet 0.25 mg PO HS 03/03/24 12/14/24 History tramadol 50 mg tablet 50 mg PO Q6H PRN pain, moderate 04/06/24 12/14/24 Rx #30 tabs alprazolam 0.25 mg tablet 0.25 mg PO UD PRN Anxiety 11/15/24 12/14/24 History Past Med/Surg History Problem List Neurogenic claudication due to lumbar spinal stenosis Medical History History of influenza (~10/2024) A. Testing around oct 22 2024 [facility]. Resolved. no current s/s. 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 r/t left jaw fracture Residual occasional locking Hx of malignant neoplasm of kidney Dx 2001, s/p left nephrectomy 2001 Anxiety and depression History of COVID-19 (~2020) 2019: symptoms resolved History of asthma No current issues or inhalers RLS (restless legs syndrome) Muscle spasm back GERD (gastroesophageal reflux disease) controlled, stable per pt Hyperlipemia Hypertension controlled, stable per pt Hypothyroidism Surgical History History of cardiac cath Prior to 2009- no stents Nausea and vomiting after administration of anesthetic agent Hx of removal of cyst right calf x2 Hx of left knee surgery to remove cartilege as a child History of total left knee replacement History of total right knee replacement Hx of fusion of cervical spine 2003 - full rom. History of mandibular surgery R/t left jaw fracture (surgery to correct, implant present) Hx of lumbosacral spine surgery x4 including hx fusion. March 2024 most recent back sx. Hx of hysterectomy left ovary remains Hx of appendectomy Hx of cholecystectomy History of esophagogastroduodenoscopy (EGD) Hx of colonoscopy History of nephrectomy, left 2001 [place] teeth extracted Hx of tooth extraction all upper teeth Hx of tonsillectomy Family History Brother Family history of reaction to anesthesia n/v, took awhile to come out of it. Social History Smoking Status: Former smoker Tobacco Type: Cigarettes Cigarettes Per Day: 8 mon ago/advised; Second Hand Exposure: Yes (hx growing up); Do You Dip or Chew Tobacco: No; Hx Alcohol Use: Yes Alcohol type: wine Hx Substance Use: No Preferred Language: Green[place]ic Communication Ability: Effective Barbecue Cook Required: No Beliefs That Will Affect Care: None Current Living Situation: Alone Current Living Situation Comment: sister will be staying with pt after sx. Other Information That Helps Us Care for You: Yes (has case packer through workmans comp. inquiring about post op care plan.) Feels Safe at Home: Yes Assistive Devices: Cane, Contacts, Denture - Upper, Glasses, Walker and Other Assistive Devices Comment: rollator, lower caps. Physical Exam Physical Exam: Patient is alert and oriented Heart regular rhythm Lungs clear Results & Data Results & Data Vital Signs (Past 12 Hours) Vital Signs Temp Pulse Resp BP Pulse Ox O2 Del Method 12/14/24 09:14 36.5 C 75 20 156/94 H 100 Room Air
[2024-12-14] MEDS ORDERED: DROPERIDOL 5 MG/2 ML VIAL ONE (12:30)
[2024-12-14] MEDS ORDERED: HYDROmorphone INJ 2 MG/ML SYR/VIAL ONE (13:02)
[2024-12-14] MEDS: ceFAZolin 330 MG/ML 1 GM VIAL ONE (13:15)
[2024-12-14] MEDS: BUPIVACAINE/EPINEPHRINE 0.25% 1:200,000 30 ML VIAL ONE (13:15)
[2024-12-14] MEDS ORDERED: PHENYLEPHRINE 100MCG/ML 5ML SYR ONE (13:26)
[2024-12-14] MEDS: FLOSEAL HEMOSTATIC MATRIX 10ML TOP ONE (13:55)
[2024-12-14] MEDS ORDERED: SUGAMMADEX SODIUM 200 MG/2 ML VIAL IV ONE (13:57)
--- NOTE | 2024-12-14 14:08 | Operative Report ---
Post Operative Report Pre & Post Diagnosis Operation Date: 12/14/24 11:35 Pre-Op Diagnosis: #1 lumbar spondylosis with radiculopathy #2 lumbar spinal stenosis #3 obesity Post-Op Diagnosis: Same I identified the patient and participated in the time-out.: Yes Procedure Operation Date: 12/14/24 11:35 Actual Procedures #1 lumbar laminectomy with bilateral medial facetectomies and foraminotomies T12-L1 L1-L2. #2 posterior spinal fusion T12-L2. #3 placement posterior instrumentation with medic Creo screws and connectors T12 and L2-L3. #4 interbody fusion L1-L2. #5 placement of Spira 9 x 26 mm at L1-L2. #6 placement locally harvested morselized autograft posterior gutters. #7 placement infuse collagen sponge, with Koros in the posterior lateral gutters and os design and interbody space. #8 application of versa wrap of the exposed dura. Surgeon Chris Suresh, DO Development Lead Rosie Gamboa Estimated Blood Loss 100 Findings See Below Patient is 5 foot 7 weighing over 110 kg with a BMI in excess of 38. The patient's body habitus did contribute to significant technical difficulty with positioning exposure and the procedure itself adding at least 50% increased operative time. Specimens None Indications This is a 69-year-old female well-known to me the presents above-mentioned diagnosis of failed course of nonoperative care is here for surgical invention. Description of Procedure Patient is met with identified informed consent obtained. Patient was then taken to the operative suite underwent intubation placed in a prone position on the Arsalan table with a chest pad and hip bolsters. All bony promises well- padded eyes inspected to ensure no external pressure placed upon them. This point the thoracolumbar spine was prepped and draped in sterile fashion. Sharp dissection with the assistance of Bovie cautery performed down to and exposing the lamina transverse processes of T12-L1 and the instrumentation at L2-L3. I then performed a complete laminectomy of L1 including bilateral medial facetectomies and foraminotomies addressing all neural compression. This followed by partial laminectomy of T12 with bilateral male facetectomies addressing all subarticular stenosis. Pedicle screws were then placed in T12-L1 bilaterally and connectors attached to the rods at L2-L3 bilaterally. By way of transforaminal approach and right complete discectomy of L1-L2 was performed endplates guarded to subcortical the bone and a 9 x 26 mm spiral cage filled with os design bone graft tapped in position. Probe size rods were then contoured and locked into position bilaterally. Transverse processes of T12 L1- L2 burred to subcortical bleeding bone. Infuse collagen sponge, with Koros and local autograft placed in the posterior gutters for strep placed over the exposed dura. 15 round BILL drain inserted. The incision was then closed with 1 Vicryl the fascia 2-0 Vicryl subcutaneously and 4 Monocryl for final skin closure. Steri-Strips and sterile dressing placed. Patient waken taken PACU stable condition. Please note spinal cord monitoring was utilized at the procedure no changes noted. Rosie Gamboa was present at the entire procedure and while the patient positioning complex portion of the surgery and final skin closure. I attest to the content of the Intraoperative Record and any orders documented therein. Any exceptions are noted below.
--- NOTE | 2024-12-14 14:15 | Fluoroscopy Report ---
FL lumbar spine 2-3V CLINICAL HISTORY: T12-L2 DECOMPRESSION AND FUSION COMPARISON STUDY: None pertinent FLUOROSCOPY TIME: 23.4 seconds FLUOROSCOPY IMAGES: 2 EXPOSURE DOSE: 18.2 to mGy FINDINGS: Fluoroscopic guidance provided IMPRESSION: Refer to the procedure report for evaluation based upon real time fluoroscopic observatio n ACT 112: Negative or not required by law. Electronically signed by: Bee Mcclendon M.D. 12/14/2024 2:13 PM
[2024-12-14] MEDS: HYDROmorphone INJ 1 MG/ML SYRINGE IV PRN ×2 (14:45→23:13)
--- NOTE | 2024-12-14 15:32 | Anesthesiology Progress Note ---
Date of Service December 14, 2024 Anesthesia Post Procedure Vital Signs Vital Signs: Temp Pulse Resp BP Pulse Ox O2 Del Method O2 Flow Rate 12/14/24 15:30 76 12 140/89 99 Nasal Cannula 2 12/14/24 15:20 79 12 156/90 H 96 Nasal Cannula 2 12/14/24 15:10 71 12 158/86 H 96 Nasal Cannula 2 12/14/24 15:00 36.4 C L 81 12 146/89 H 98 Nasal Cannula 2 12/14/24 14:50 79 12 147/89 H 98 Nasal Cannula 2 12/14/24 14:40 75 16 147/85 H 96 Nasal Cannula 2 12/14/24 14:30 36.4 C L 89 15 143/95 H 96 Nasal Cannula 2 12/14/24 14:22 36 C L 85 14 136/86 93 Nasal Cannula 2 12/14/24 09:14 36.5 C 75 20 156/94 H 100 Room Air Pain Intensity Bilateral Back: Pain Intensity: 5 Transfer of Care Handoff Completed per policy Notes Mental Status: alert / awake / arousable Patient Amnestic to Procedure: Yes Nausea / Vomiting: adequately controlled Pain: adequately controlled Airway Patency, RR, SpO2: stable & adequate BP & HR: stable & adequate Hydration State: stable & adequate Anesthetic Complications: no major complications apparent
[2024-12-14] MEDS ORDERED: NALOXONE HCL 0.4 MG/1 ML VIAL/CARP IV PRN (15:56)
[2024-12-14] MEDS ORDERED: ALPRAZolam 0.25 MG TABLET PO PRN (15:56)
[2024-12-14] MEDS ORDERED: PROMETHAZINE 12.5 MG/50.5 ML BAG IV PRN (15:56)
[2024-12-14] MEDS ORDERED: DO NOT ADMINISTER PNEUMOCOCCAL VACCINE PRN (15:56)
[2024-12-14] MEDS ORDERED: LORazepam 0.5 MG TAB PO PRN (15:56)
[2024-12-14] MEDS ORDERED: LORazepam 2 MG/1 ML VIAL IV PRN (15:56)
[2024-12-14] MEDS ORDERED: ALUMINUM/MAGNESIUM SUSP 30 ML UDC PO PRN (15:56)
[2024-12-14] MEDS ORDERED: diphenhydrAMINE Capsule 25 MG CAP PO PRN (15:56)
[2024-12-14] MEDS ORDERED: FAMOTIDINE 20 MG TAB PO PRN (15:56)
[2024-12-14] MEDS ORDERED: bisacodyL 10 MG SUPP PR PRN (15:56)
[2024-12-14] MEDS ORDERED: HYDROmorphone INJ 0.5 MG/0.5 ML SYR IV PRN (15:56)
[2024-12-14] MEDS ORDERED: FUROSEMIDE 40 MG TAB PO PRN (15:56)
[2024-12-14] MEDS ORDERED: hydrOXYzine HCl 25 MG TAB PO PRN (15:56)
[2024-12-14] MEDS ORDERED: ONDANSETRON 4 MG OD TAB PO PRN (15:56)
[2024-12-14] MEDS ORDERED: SOD PHOSPHATE/SOD BIPHOSPHATE ENEMA 132 ML BTL PR PRN (15:56)
[2024-12-14] MEDS ORDERED: ACETAMINOPHEN 1,000 MG/100 ML VIAL IV PRN (15:56)
[2024-12-14] MEDS ORDERED: METOCLOPRAMIDE HCL INJ 5 MG/ML 2 ML VIAL IV PRN (15:56)
[2024-12-14] MEDS ORDERED: DO NOT ADMINISTER FLU VACCINE PRN (15:56)
[2024-12-14] MEDS ORDERED: MAGNESIUM HYDROXIDE SUSP 30 ML UDC PO PRN (15:56)
--- NOTE | 2024-12-14 16:29 | Consultation ---
Date of Consultation December 14, 2024 Assessment & Plan (1) S/P spinal surgery: Post op day#0 S/P spinal fusion T12-L2 by Dr Suresh EBGee#100ml Pain management per ortho Wound management per ortho PT/OT as appropriate DVT prophylaxis per ortho Incentive spirometry Monitor H&H for acute blood loss anemia; Pre-op Hgb: 13 (2) Hypertension: Post op BP: 146/88 Continue home losartan (3) Hyperlipemia: Continue atorvastatin (4) Hypothyroidism: Continue levothyroxine (5) GERD (gastroesophageal reflux disease): Continue PPI #History BLE Edema Hold prn lasix and reassess tomorrow DVT Prophylaxis SCDs Disposition per primary service Follows with Dr Tony Barba for routine care Pt was seen and care coordinated with Dr Loyola. See addendum I spent a total of 35 minutes reviewing notes, outpatient records, labs, medication, coordinating, documenting and providing care for this patient excluding time spent in the performance of separately billed services and excluding time spent by another provider/QHP. Thank you for this consultation. We will follow the patient with you during their hospital stay. You can reach a member of the [facility]ist Team 06/04 via [facility] Supervising Physician Co-Signing Physician Notes Pt was seen and examined by myself, Ariana Loyola MD on the day of service. Care was coordinated with Gema Russ PA-C. 69yoF seen postop after T12-L2 decompression and fusion. Was resting in bed comfortably. noted pain was controlled at the time of exam. Tolerating diet Monitor H/H and volume status Resume home lasix as able Otherwise as above. I spent a total [id number] coordinating, documenting, and providing care for this patient excluding time spent in the performance of separately billed services History of Present Illness Requesting Physician: Dr Suresh Reason for Consultation: Post op medical management Attending Physician: Chris Suresh, History of Present Illness Patient is 69-year-old female with PMH HTN, HLD, hypothyroidism, asthma, fatty liver, history of left renal cell carcinoma s/p nephrectomy in 2001, chronic back pain, GERD, obesity, seen in medical consultation s/p spinal fusion T12-L2 today by Dr. Suresh. Postop patient reports pain is controlled. Denies any pain or paresthesias to extremities at this time. Has Rivera catheter in place. Reports last BM was yesterday. Reports sipping on water without any nausea or vomiting. Reports been having constipation for past 6 months and uses OTC laxative as needed. Denies fever/chills, diaphoresis, N/V/D, PARK, dizziness, neck pain, CP, SOB, palpitations, cough, rhinorrhea, abdominal pain, rashes, urinary symptoms. Allergies Allergy/AdvReac Type Severity Reaction Status Date / Time esomeprazole Allergy Unknown Hives Verified 12/14/24 09:03 pantoprazole Allergy Unknown Hives Verified 12/14/24 09:03 Penicillins Allergy Unknown Hives Verified 12/14/24 09:03 Sulfa (Sulfonamide Allergy Unknown Hives Verified 12/14/24 09:03 Antibiotics) atenolol AdvReac Unknown Dizziness, Verified 12/14/24 09:03 felt "loopy" clarithromycin AdvReac Unknown Yeast Verified 12/14/24 09:03 infection (mouth) cortisone AdvReac Unknown Elevated BP Verified 12/14/24 09:03 prednisone AdvReac Unknown Elevated BP Verified 12/14/24 09:03 propoxyphene AdvReac Unknown N/V Verified 12/14/24 09:03 (Darvocet), "OK with tylenol" simvastatin AdvReac Unknown Mylagias Verified 12/14/24 09:03 Home Medications Medication Instructions Recorded Confirmed Type aspirin 81 mg capsule 81 mg PO QAM 03/03/24 12/14/24 History atorvastatin 20 mg tablet 20 mg PO QAM 03/03/24 12/14/24 History furosemide 20 mg tablet 40 mg PO UD PRN swelling 03/03/24 12/14/24 History levothyroxine 50 mcg tablet 50 mcg PO QAM 03/03/24 12/14/24 History losartan 100 mg tablet (Cozaar) 100 mg PO HS 03/03/24 12/14/24 History multivitamin 1 tab PO QAM 03/03/24 12/14/24 History omeprazole 40 mg capsule,delayed 40 mg PO QAM GERD 03/03/24 12/14/24 History release potassium chloride 20 mEq 20 - 40 meq PO UD PRN taken when 03/03/24 12/14/24 History tablet,extended release taking furosemide ropinirole 0.25 mg tablet 0.25 mg PO HS 03/03/24 12/14/24 History tramadol 50 mg tablet 50 mg PO Q6H PRN pain, moderate 04/06/24 12/14/24 Rx #30 tabs alprazolam 0.25 mg tablet 0.25 mg PO UD PRN Anxiety 11/15/24 12/14/24 History Patient History Medical History History of influenza (~10/2024) A. Testing around oct 22 2024 [facility]. Resolved. no current s/s. 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 r/t left jaw fracture Residual occasional locking Hx of malignant neoplasm of kidney Dx 2001, s/p left nephrectomy 2001 Anxiety and depression History of COVID-19 (~2020) 2019: symptoms resolved History of asthma No current issues or inhalers RLS (restless legs syndrome) Muscle spasm back GERD (gastroesophageal reflux disease) controlled, stable per pt Hyperlipemia Hypertension controlled, stable per pt Hypothyroidism Surgical History History of cardiac cath Prior to 2009- no stents Nausea and vomiting after administration of anesthetic agent Hx of removal of cyst right calf x2 Hx of left knee surgery to remove cartilege as a child History of total left knee replacement History of total right knee replacement Hx of fusion of cervical spine 2003 - full rom. History of mandibular surgery R/t left jaw fracture (surgery to correct, implant present) Hx of lumbosacral spine surgery x4 including hx fusion. March 2024 most recent back sx. Hx of hysterectomy left ovary remains Hx of appendectomy Hx of cholecystectomy History of esophagogastroduodenoscopy (EGD) Hx of colonoscopy History of nephrectomy, left 2001 [place] teeth extracted Hx of tooth extraction all upper teeth Hx of tonsillectomy Family History Brother Family history of reaction to anesthesia n/v, took awhile to come out of it. Social History Smoking Status: Former smoker Tobacco Type: Cigarettes Cigarettes Per Day: 8 mon ago/advised; Second Hand Exposure: Yes (hx growing up); Do You Dip or Chew Tobacco: No; Hx Alcohol Use: Yes Alcohol type: wine Hx Substance Use: No Preferred Language: German Communication Ability: Effective Document Processor Required: No Beliefs That Will Affect Care: None Current Living Situation: Alone Current Living Situation Comment: sister will be staying with pt after sx. Other Information That Helps Us Care for You: Yes (has child support case officer through workmans comp. inquiring about post op care plan.) Feels Safe at Home: Yes Assistive Devices: Cane, Contacts, Denture - Upper, Glasses, Walker and Other Assistive Devices Comment: rollator, lower caps. Review of Systems Review of Systems: All systems reviewed & are unremarkable except as noted in HPI & below Physical Exam Physical Exam: General: no distress, obese Head: normocephalic, atraumatic Eyes: conjunctiva non-injected, anicteric ENT: normal inspection external ears, nose, mucous membranes moist Neck: supple, trachea midline Lungs: clear, no respiratory distress, no wheezing/rhonchi/rales CV: RRR, no murmur, no pretibial edema Abd: protuberant, normal BS, soft, non-tender Back: +BILL drain in place with serosanguineous drainage Ext: no cyanosis, no calf tenderness, bilateral pedal pushes and pulls intact Neuro: A&O x 3, no focal deficits noted, normal affect Skin: warm, dry Results & Data Vital Signs (Past 12 Hours) Vital Signs Temp Pulse Resp BP Pulse Ox O2 Del Method O2 Flow Rate 12/14/24 15:45 80 12 142/88 H 99 Nasal Cannula 2 12/14/24 15:30 76 12 140/89 99 Nasal Cannula 2 12/14/24 15:20 79 12 156/90 H 96 Nasal Cannula 2 12/14/24 15:10 71 12 158/86 H 96 Nasal Cannula 2 12/14/24 15:00 36.4 C L 81 12 146/89 H 98 Nasal Cannula 2 12/14/24 14:50 79 12 147/89 H 98 Nasal Cannula 2 12/14/24 14:40 75 16 147/85 H 96 Nasal Cannula 2 12/14/24 14:30 36.4 C L 89 15 143/95 H 96 Nasal Cannula 2 12/14/24 14:22 36 C L 85 14 136/86 93 Nasal Cannula 2 12/14/24 09:14 36.5 C 75 20 156/94 H 100 Room Air
[2024-12-14] MEDS: DOCUSATE SODIUM/SENNA 50/8.6MG TAB PO SCH (20:34)
[2024-12-14] MEDS: rOPINIRole HCL 0.25 MG TABLET PO SCH (20:34)
[2024-12-14] MEDS: LOSARTAN POTASSIUM 50 MG TAB PO SCH (20:34)
[2024-12-14] MEDS: ceFAZolin 2000MG 2,000 MG/15 ML SYR IV SCH (20:35)
[2024-12-14] MEDS: oxyCODONE HCL IR 5 MG TAB (IMMEDIATE RELEASE) PO PRN (20:36)
[2024-12-14] MEDS ORDERED: LOSARTAN POTASSIUM 50 MG TAB PO SCH (21:00)
[2024-12-15] MEDS: POLYETHYLENE (MIRALAX) 17 GM PACK PO SCH (05:36)
[2024-12-15] MEDS: LEVOTHYROXINE SODIUM 50 MCG TABLET PO SCH (05:37)
[2024-12-15] MEDS: ACETAMINOPHEN 500 MG TAB PO PRN (07:59)
[2024-12-15] MEDS: dexAMETHasone 6 MG in SYRINGE 0 ML IV SCH (08:01)
[2024-12-15] MEDS: ASPIRIN 81 MG ECTAB PO SCH (08:01)
[2024-12-15] MEDS: ATORVASTATIN 20 MG TAB PO SCH (08:01)
[2024-12-15] MEDS: MULTIVITAMIN TAB PO SCH (08:01)
[2024-12-15 08:14] LABS: Hematocrit (blood only) 34.1 % (37.0-47.0); Hemoglobin 11.6 g/dl (12.0-16.0); Immature Granulocytes # (auto) 0.08 K/uL (0.01-0.20); Immature Granulocytes % (auto) 0.7 %; Lymphocytes # (auto) 0.81 K/uL (1.20-3.40); Lymphocytes % (auto) 7.3 %; Mean Corpuscular Hemoglobin 32.7 pg (25.0-34.0); Mean Corpuscular Volume 96.1 fL (80.0-100.0); Mean Platelet Volume 11.7 fL (9.4-12.4); Monocytes # (auto) 0.47 K/uL (0.11-0.59); Monocytes % (auto) 4.2 %; Neutrophils # (auto) 9.75 K/uL (1.40-6.50); Neutrophils % (auto) 87.8 %; Platelet Count 194 K/uL (130-400); RDW Coefficient of Variation 11.8 % (11.5-14.5); RDW Standard Deviation 41.2 fL (36.4-46.3); Red Blood Count 3.55 M/uL (4.20-5.40); White Blood Count 11.11 K/ul (4.8-10.8)
--- NOTE | 2024-12-15 08:22 | Orthopedic Progress Note ---
Date of Service December 15, 2024 Assessment & Plan (1) Neurogenic claudication due to lumbar spinal stenosis: Plan: At this time initiate physical therapy monitor BILL output anticipate discharge in the next few days. This will be either with home health or rehab. Admission and Anticipated Discharge Date Admission Date: December 14, 2024 Subjective Patient's back pain is controlled leg symptoms improved Physical Exam Physical Exam: Patient is currently in bed. Is comfortable. No strength testing. Results & Data Vital Signs (Past 12 Hours) Vital Signs Temp Pulse Resp BP Pulse Ox O2 Del Method 12/15/24 07:37 36.3 C L 84 16 122/79 94 Room Air 12/15/24 03:09 36.6 C 87 18 123/79 93 Room Air 12/14/24 23:30 36.5 C 84 18 147/91 H 93 Room Air Queries Orthopedic Spine Obesity: Yes
[2024-12-15 08:32] LABS: BUN Creatinine Ratio 13.8 (10-20); Calcium 8.8 mg/dl (8.6-10.3); Creatinine Clr Calc Pharmacy 85.1 ml/min; Potassium 4.4 mmol/L (3.5-5.1)
[2024-12-15] MEDS: traMADol HCL 50 MG TABLET PO PRN (11:12)
--- NOTE | 2024-12-15 13:09 | Hospitalist Progress Note ---
Date of Service December 15, 2024 Assessment & Plan (1) S/P spinal surgery: Plan: per previous hospitalist notes with addendum: Post op day#0 S/P spinal fusion T12-L2 by Dr Demetrice LAW#100ml Pain management per ortho Wound management per ortho PT/OT as appropriate DVT prophylaxis per ortho Incentive spirometry Monitor H&H for acute blood loss anemia; Pre-op Hgb: 13 4/3 Hg 11.6 stable overall (2) Hypertension: Plan: Post op BP: 146/88 Continue home losartan 4/3 systolic bp 120-s150s continue Losartan monitor (3) Hyperlipemia: Plan: Continue atorvastatin (4) Hypothyroidism: Plan: Continue levothyroxine (5) GERD (gastroesophageal reflux disease): Plan: Continue PPI #History BLE Edema Hold prn lasix and re-evaluate daily DVT Prophylaxis SCDs Disposition per primary service Follows with Dr Tony Barba for routine care Admission and Anticipated Discharge Date Admission Date: December 14, 2024 Subjective ff up for s/p back surgery, etc seen resting in bed, not in distress having some significant pain today with movement ambulated in the hallways no chest pain, dyspnea, palpitations, dizziness no other symptoms Review of Systems Review of Systems: all noted and negative except for above Physical Exam Physical Exam: General- oriented x 3, not in distress, speaks in sentences with no effort or accessory muscle use Eyes- anicteric Neck- no JVD Lungs- clear breath sounds bilaterally, no crackles/wheezing Heart- normal rate, regular rhythm; no murmurs Abdomen- normal bowel sounds, nondistended, soft, nontender Extremities- no pretibial edema, no calf tenderness Neuro- alert, oriented x 3; no gross focal neurologic deficits Skin- warm & dry Results & Data Results & Data Vital Signs (Past 12 Hours) Vital Signs Temp Pulse Resp BP Pulse Ox O2 Del Method 12/15/24 11:10 36.6 C 79 16 153/94 H 93 Room Air 12/15/24 07:37 36.3 C L 84 16 122/79 94 Room Air 12/15/24 03:09 36.6 C 87 18 123/79 93 Room Air all noted and reviewed including below
[2024-12-15] MEDS ORDERED: LOSARTAN POTASSIUM 50 MG TAB PO SCH (21:00)
--- NOTE | 2024-12-16 09:42 | Orthopedic Progress Note ---
Date of Service December 16, 2024 Assessment & Plan (1) Neurogenic claudication due to lumbar spinal stenosis: Plan: At this time we will continue physical therapy as tolerated. Will plan for rehab placement and bed available. Admission and Anticipated Discharge Date Admission Date: December 14, 2024 Subjective Patient complaining of some muscle spasms. Struggling with hypertension. Physical Exam Physical Exam: Patient is in the chair at the bedside. She has good strength testing. BILL drain is functional. Results & Data Vital Signs (Past 12 Hours) Vital Signs Temp Pulse Resp BP Pulse Ox O2 Del Method 12/16/24 08:14 36.5 C 89 18 171/108 H 93 Room Air 12/16/24 05:47 36.3 C L 87 18 99 Room Air Queries Orthopedic Spine Obesity: Yes
[2024-12-16] MEDS: CYCLOBENZAPRINE HCL 10 MG TAB PO PRN (10:58)
[2024-12-16] MEDS ORDERED: ALPRAZolam 0.25 MG TABLET PO PRN (13:52)
[2024-12-16] MEDS: amLODIPine BESYLATE 5 MG TAB PO ONE (16:25)
[2024-12-16] MEDS: FUROSEMIDE 20 MG TAB PO SCH (16:26)
[2024-12-16] MEDS: POTASSIUM CHLORIDE CRTAB 20 MEQ TABCR PO STA ×2 (16:26→16:56)
--- NOTE | 2024-12-16 17:48 | Hospitalist Progress Note ---
Date of Service December 16, 2024 Assessment & Plan (1) S/P spinal surgery: Plan: per previous hospitalist notes with addendum: Post op day#0 S/P spinal fusion T12-L2 by Dr Demetrice LAW#100ml Pain management per ortho Wound management per ortho PT/OT as appropriate DVT prophylaxis per ortho Incentive spirometry Monitor H&H for acute blood loss anemia; Pre-op Hgb: 13 4/3 Hg 11.6 stable overall (2) Hypertension: Plan: Post op BP: 146/88 Continue home losartan 4/3 systolic bp 120-s150s continue Losartan monitor (3) Hyperlipemia: Plan: Continue atorvastatin (4) Hypothyroidism: Plan: Continue levothyroxine (5) GERD (gastroesophageal reflux disease): Plan: Continue PPI #History BLE Edema Hold prn lasix and re-evaluate daily DVT Prophylaxis SCDs Disposition per primary service Follows with Dr Tony Barba for routine care Admission and Anticipated Discharge Date Admission Date: December 14, 2024 Results & Data Results & Data Vital Signs (Past 12 Hours) Vital Signs Temp Pulse Resp BP Pulse Ox O2 Del Method 12/16/24 16:23 36.9 C 82 18 157/107 H 95 Room Air 12/16/24 08:14 36.5 C 89 18 171/108 H 93 Room Air
[2024-12-16] MEDS ORDERED: hydrALAZINE HCL 20 MG/ML VIAL IV PRN (17:49)
[2024-12-17] MEDS: amLODIPine BESYLATE 5 MG TAB PO SCH (08:05)
[2024-12-17 08:48] LABS: Calcium 9.2 mg/dl (8.6-10.3); Magnesium 1.7 mg/dl (1.7-2.4); Potassium 4.4 mmol/L (3.5-5.1)
--- NOTE | 2024-12-17 08:48 | Discharge Summary ---
Date of Service December 17, 2024 Admission HPI Per Admitting Provider This is a 69-year-old female with chronic persistent back and leg pain is failed extensive course of nonoperative care and here for surgical invention. Admission Exam (Per Admitting) Constitutional WD/WN, vitals as above Eyes normal visual gonzales by confrontation ENMT external ear and nose normal, oropharynx normal Neck normal visual inspection Respiratory normal respiratory effort Cardiovascular Extremities: normal capillary refill Gastrointestinal (Abdomen) Inspection/Auscultation: abdomen normal to inspection Musculoskeletal Spine: + limited thoraco-lumbar ROM and + pain with thoraco-lumbar ROM Extremities: extremities normal to inspection and strength 5/5 throughout Skin no rashes, warm and dry Neurologic normal touch/pain/proprioception and moves all extremities Psychiatric A+Ox3, euthymic affect Eye Contact: good eye contact Discharge Data Consultations 12/14/24 15:56 Consult Hospitalist Routine Procedures Performed Operation Date: 12/14/24 11:35 Actual Procedures p T12-L2 Decompression and Fusion, Connect to Previous Hardware, Spinal Cord Monitoring(Not Applicable) - Chris Suresh, Hospital Course (1) Neurogenic claudication due to lumbar spinal stenosis: Unique is being discharged to [facility] in [place] on postoperative day 3 status post T12-L2 decompression and fusion. She is making progress. Pain is improving. BILL drain output last shift was 30 cc. She has had a bowel movement. She is participating in physical therapy and making slow and steady improvements daily. Discharge Instructions ACTIVITY RECOMMENDATIONS: SELF CARE INSTRUCTIONS AFTER THORACIC/LUMBAR FUSIONS 1. You may walk to your tolerance. It is good exercise for your legs and back. Expect some back and intermittent leg aches and pains. 2. You may perform "counter-top" level activities (make a sandwich, po with a project, etc.). 3. No bending or lifting of more than 10 pounds or back twisting of any nature (roll like a log when turning in bed). 4. You may ride in a car for 20-30 minutes at a time. No driving until after your first visit with your doctor. 5. Frequent changes of position and restricting sitting to 30 minutes at a time will help limit the amount of back spasms and stiffness you may experience. 6. You may discontinue the use of ambulatory aids (cane, crutches, etc.) once your strength and confidence allow. 7. You may paint coating machine operator the shower and let water strike your incision when you arrive home at least once daily. Do not take a tub bath, sit in a hot tub or go into a swimming pool until after your first recheck in the office. 8. You may resume previous diet. SPECIAL CARE INSTRUCTIONS: VERY IMPORTANT TO READ AND REVIEW A. Your surgical incision has been closed with a cosmetic suture under the skin that will dissolve in about 6 weeks. In 14 days, you can use a pair of clean scissors and cut the suture that is left outside of the skin at the ends of your incision. 1. The small skin tapes can be removed 7 days after surgery if they have not fallen off by that point. 2. You may keep the wound open to air as much as possible to promote healing after post-op day number 5 unless told otherwise by your doctor. 3. If you think the wound looks like it is becoming infected (redness or worsening drainage) and/or you are experiencing fever, chill or worsening back pain and muscle spasms, contact the office so that we may evaluate you as soon as possible. B. Complications are uncommon, but please contact us if you have any signs or symptoms of: 1. wound infection (fever higher than 102.5 degrees F, redness, separation of wound, drainage, or increasing pain from the incision) 2. blood clots in legs (pain, swelling, redness and warmth in legs) 3. urinary tract infection (fever higher than 102.5 degrees F, burning upon urination or increased frequency of urination) 4. nerve problems (inability to walk on your toes or heels, numbness, loss of bowel or bladder control) 5. any other symptoms that concern you C. Please call the office at if you have any concerns or questions about your operation or recovery. D. No smoking! Smoking drastically decreases the chance of a solid fusion. E. Do not take any anti-inflammatory medications (Indocin, Advil, Motrin, Aspirin, Naprosyn, etc.) as these may inhibit the chance of a solid fusion. Tylenol is okay to take for pain. MANAGING PAIN AFTER SPINAL SURGERY 1. Narcotic medication is intended for short-term use and will be provided for surgical pain. Surgical pain usually lasts for a period of 4-6 weeks. Narcotic medication includes Percocet, Vicodin, Darvocet, Tylenol #3 or Lortab. 2. Longer-term pain is more appropriately treated with non-narcotic medication such as Tylenol ES. 3. Muscle spasm is not appropriately treated with narcotics. Muscle relaxers such as Soma, Flexeril or Skelaxin can be used along with Tylenol ES. 4. Remember that we all live with some "aches and pains". This is not unusual or uncommon after an injury or as we get older. a. Back pain is expected and may include muscle spasms for 4 to 6 weeks after surgery. The pain should gradually improve. If the pain worsens for no apparent reason, please contact the office. b. Intermittent leg pain may also be experienced and should not be concerned about unless it worsens for no apparent reason. If so, please contact the office. 5. We will provide appropriate medication within the normal guidelines of their prescribed use. We will also be very cautious and aware of potential abuse and extended duration of patients' medication needs. a. Pain medications are for your comfort and to assist with sleep and rest so that the tissue can heal. They are not provided in order to return to normal activity and should not be used through the day. To do so or worsening pain at night can result from ongoing tissue damage and development of tolerance to the prescribed medicine. 6. Please allow 2-3 days to process refills. Prescriptions will not be mailed but must be picked up at the office. FOLLOW UP VISIT: Keep your scheduled follow-up appointment. Any questions, please call the office at .
[2024-12-17 08:53] LABS: BUN Creatinine Ratio 21.5 (10-20); Creatinine Clr Calc Pharmacy 86.2 ml/min
[2024-12-17] MEDS: POTASSIUM CHLORIDE CRTAB 20 MEQ TABCR PO STA (10:29)
--- NOTE | 2024-12-17 18:42 | Hospitalist Progress Note ---
Date of Service December 17, 2024 Assessment & Plan (1) S/P spinal surgery: Plan: per previous hospitalist notes with addendum: Post op day#0 S/P spinal fusion T12-L2 by Dr Demetrice LAW#100ml Pain management per ortho Wound management per ortho PT/OT as appropriate DVT prophylaxis per ortho Incentive spirometry Monitor H&H for acute blood loss anemia; Pre-op Hgb: 13 4/5 Hg 11.6 Patient remainsstable overall (2) Hypertension: Plan: Post op BP: 146/88 Continue home losartan 4/3 systolic bp 120-s150s continue Losartan monitor 4/5 Blood pressure improving with addition of amlodipine 5 mg p.o. daily Continue for now (3) Hyperlipemia: Plan: Continue atorvastatin (4) Hypothyroidism: Plan: Continue levothyroxine (5) GERD (gastroesophageal reflux disease): Plan: Continue PPI #History BLE Edema Having some bilateral lower extremity edema Given Lasix 20 g p.o. x 2 doses Edema improving Continue to monitor Continue as needed Lasix DVT Prophylaxis SCDs Aspirin daily Recommend Lovenox SC daily Disposition per primary service Admission and Anticipated Discharge Date Admission Date: December 14, 2024 Subjective Follow-up for status post back surgery Seen resting in chair, comfortable, not in distress States she feels fine overall Still having some back pain, relieved by pain medications No dizziness, chest pain, shortness of breath No other new symptoms Review of Systems Review of Systems: all noted and negative except for above Physical Exam Physical Exam: General- oriented x 3, not in distress, speaks in sentences with no effort or accessory muscle use Eyes- anicteric Neck- no JVD Lungs- clear breath sounds bilaterally, no rales/wheezes Heart- normal rate, regular rhythm; no murmurs Abdomen- normal bowel sounds, nondistended, soft, nontender Extremities- no pretibial edema, no calf tenderness Neuro- alert, oriented x 3; no gross focal neurologic deficits Skin- warm & dry Results & Data Results & Data Vital Signs (Past 12 Hours) Vital Signs Temp Pulse Resp BP BP Pulse Ox O2 Del Method 12/17/24 11:23 139/70 12/17/24 10:52 158/115 H 12/17/24 08:00 36.6 C 72 18 153/117 H 96 Room Air all noted and reviewed including below
--- NOTE | 2024-12-18 08:22 | Orthopedic Progress Note ---
Date of Service December 18, 2024 Assessment & Plan (1) Neurogenic claudication due to lumbar spinal stenosis: Plan: Unique is postoperative day 4 status post T12-L2 decompression and fusion. She will be discharged to [facility] in [place] today. She has follow-ups already scheduled in our office for 2-week and 6-week postop appointments. All questions were answered Admission and Anticipated Discharge Date Admission Date: December 14, 2024 Subjective Unique is postoperative day 4 status post T12-L2 decompression and fusion. No new complaints. Discharge was on hold yesterday due to lack of bed availability at [facility] in [place]. She is going to be discharged there this morning. She has had a bowel movement. BILL drain output last shift was 5 cc. Ambulating roughly 90 feet in physical therapy yesterday Review of Systems Review of Systems: All systems reviewed & are unremarkable except as noted in HPI & below Physical Exam Physical Exam: She sitting in a chair eating breakfast in no acute distress Alert and oriented x 3 Dressing is clean dry and intact with functioning BILL drain strength intact bilateral lower extremities Results & Data Vital Signs (Past 12 Hours) Vital Signs O2 Del Method 12/17/24 22:31 Room Air Queries Orthopedic Spine Obesity: Yes
[2024-12-18 08:54] VITALS: BP 136/79; PULSE 89; RESP 18; TEMP 98.6; O2SAT 94
[2024-12-18 10:01] LABS: Calcium 9.2 mg/dl (8.6-10.3); Magnesium 1.6 mg/dl (1.7-2.4); Potassium 3.6 mmol/L (3.5-5.1)
[2024-12-18 10:07] LABS: BUN Creatinine Ratio 23.5 (10-20); Creatinine Clr Calc Pharmacy 84.1 ml/min
== END 2024-12-18 11:02 | DRG 428 ==
LOC: ASU 08:11 → 3N 14:16